=== PATIENT | female | born 1935 | race Caucasian/White ===

== ENCOUNTER → 2023-09-30 11:14 | Outpatient (REF) | payer MEDICARE, SELFPAY | LOC: RAD 11:14 | PROVIDERS: ATTENDING PHYSICIAN Internal Medicine; FAMILY PHYSICIAN Family Medicine | DX: I65.21 Occlusion and stenosis of right carotid artery (principal) | CPT/HCPCS: 93880 ==

== ENCOUNTER 2024-12-06 18:43 | Inpatient (IN) | payer MEDICARE, SELFPAY ==
[2024-12-06] VITALS (10 sets, daily range): BP systolic 84–155; BP diastolic 47–92
[2024-12-06 14:09] LABS: Hematocrit 40.6 % (37.0-47.0); Hemoglobin 13.5 g/dL (12.0-16.0); Mean Corp Hgb Conc. 33.3 g/dL (33.0-37.0); Mean Corpuscular Volume 89.4 fL (81.0-99.0); Nucleated Red Blood Cells % 0 %; Platelet Count 351 10^3/uL (130-400); Red Cell Dist. Width 12.7 % (11.5-14.5)
[2024-12-06 14:27] LABS: ALT (SGPT) 17 U/L (0-35); AST (SGOT) 25 U/L (14-36); Albumin 4.3 g/dl (3.5-5.0); Alkaline Phosphatase 96 U/L (38-126); Blood Urea Nitrogen 26 mg/dl (7-17); Calcium 9.3 mg/dl (8.4-10.2); Carbon Dioxide 24 mmol/L (22-30); Chloride 98 mmol/L (98-107); Glucose 121 mg/dl (70-99); Lipase 92 U/L (23-300); Potassium 4.2 mmol/L (3.5-5.1); Sodium 127 mmol/L (135-145); Total Protein 7.3 g/dl (6.3-8.2); eGFR > 60.00
--- NOTE | 2024-12-06 16:36 | ED.GENMED ---
History of Present Illness
<TJ Negrete Last Filed: 12/06/24 17:45>
General
Chief Complaint: Abdominal Symptoms
Source: patient
Exam Limitations: none
Time Seen by Provider: 12/06/24 16:14
History of Present Illness
History of Present Illness:
89-year-old female presents complaining worsening lower abdominal pain since this morning preceded by constipation. She also is having trouble urinating. She noted today that she had spikes of blood pressure that was high and blood pressure that
was low. She notes sweats and chills. The pain is progressively getting worse. She has a prior history of hysterectomy and appendectomy no prior history of bowel obstruction or kidney stone.
Past History
<TJ Negrete Last Filed: 12/06/24 17:45>
Past History
ED Past Medical History: Arrthythmia (svt), HTN (taken off Clonodine 11/01/20), Hypothyroidism, Psychiatric (anxiety) and Other (Lyme disease/Tachycardia)
ED Past Surgical History: Gynecological (hysterectomy); Negative Cardiac or Cholecystectomy
Social History
Tobacco: Non-smoker
Alcohol: Occasional
Drug: None
Personal:
Living: alone
Employment: Retired
Family History
Family History: Other (Noncontributory)
Phy Exam
<TJ Negrete Last Filed: 12/06/24 17:45>
Physical Exam
Physical Exam:
General: Uncomfortable appearing female no acute respiratory distress HEENT normal cephalic atraumatic
Heart: Regular rate and rhythm lungs: Clear no wheeze
Abdomen is slightly firm quite tender mild guarding slightly distended
Extremities: No cyanosis vascular palpable pulses to the dorsal aspects of bilateral feet
Course
<TJ Negrete Last Filed: 12/06/24 17:45>
Orders/Labs/Results
Orders:
Orders
12/06/24 13:54
ECG [Electrocardiogram (*1)] Urgent
Reason for Study: Hypertension, Benign
12/06/24 13:55
EKG- Treatment ONCE
12/06/24 14:01
Complete Blood Count/With Diff Urgent
Comprehensive Metabolic Panel Urgent
Lipase Urgent
12/06/24 16:34
CT Abd/pelvis W Iv Cont Urgent
Comment:
Reason For Exam: abdominal pain
Morphine Sulfate 2 mg IV NOW STA
Ondansetron Injectable [Zofran] 4 mg IV NOW STA
12/06/24 16:35
0.9% Sodium Chloride 1000 ml [Nss] 1,000 ml IV BOLUS
12/06/24 17:13
Piperacillin/Tazo 3.375 Gram [Zosyn] 3.375 gram in 50 ml IV NOW
12/06/24 17:16
Barnard Placement- Treatment ONCE
Reason for insertion: Acute Retention
12/06/24 17:45
Lactic Acid Q4H
Comment: CANCEL 2nd LACTIC ACID IF 1st LACTIC ACID IS LESS THAN 2
Blood Culture Q30M
MISTI Source: Blood/Venous
Specimen Description:
Blood Culture Q30M
MISTI Source: Blood/Venous
Specimen Description:
12/06/24 21:15
Lactic Acid Q4H
Comment: CANCEL 2nd LACTIC ACID IF 1st LACTIC ACID IS LESS THAN 2
Abnormal Lab Results
12/06/24 12/06/24
14:01 17:45
WBC 15.4 H 10^3/uL
(4.8-10.8)
MPV 10.6 H fL
(7.4-10.4)
Abs Immat Gran (auto) 0.1 H 10^3/uL
(0-0.05)
Absolute Neuts (auto) 12.9 H 10^3/uL
(1.4-6.5)
Absolute Monos (auto) 0.7 H 10^3/uL
(0.1-0.6)
Neutrophils % 83.7 H %
(42.2-75.2)
Lymphocytes % 10.2 L %
(20.5-51.1)
Sodium 127 L mmol/L
(135-145)
BUN 26 H mg/dl
(7-17)
Glucose 121 H mg/dl
(70-99)
Lactic Acid 2.1 H mmol/L
(0.7-2.0)
12/06/24 14:01
12/06/24 14:01
Vital Signs
Initial and Last Documented VS:
Initial Vital Signs
Temp Pulse Resp BP Pulse Ox
98.2 F 52 20 108/59 97
12/06/24 13:52 12/06/24 13:52 12/06/24 13:52 12/06/24 13:52 12/06/24 13:52
Last Documented Vital Signs
Temp Pulse Resp BP Pulse Ox
98.2 F 83 18 142/60 98
12/06/24 13:52 12/06/24 18:00 12/06/24 18:13 12/06/24 18:00 12/06/24 18:00
<Phil Eid MD - Last Filed: 12/06/24 18:21>
Orders/Labs/Results
Orders:
Orders
12/06/24 13:54
ECG [Electrocardiogram (*1)] Urgent
Reason for Study: Hypertension, Benign
12/06/24 13:55
EKG- Treatment ONCE
12/06/24 14:01
Complete Blood Count/With Diff Urgent
Comprehensive Metabolic Panel Urgent
Lipase Urgent
12/06/24 16:34
CT Abd/pelvis W Iv Cont Urgent
Comment:
Reason For Exam: abdominal pain
Morphine Sulfate 2 mg IV NOW STA
Ondansetron Injectable [Zofran] 4 mg IV NOW STA
12/06/24 16:35
0.9% Sodium Chloride 1000 ml [Nss] 1,000 ml IV BOLUS
12/06/24 17:13
Piperacillin/Tazo 3.375 Gram [Zosyn] 3.375 gram in 50 ml IV NOW
12/06/24 17:16
Barnard Placement- Treatment ONCE
Reason for insertion: Acute Retention
12/06/24 17:45
Lactic Acid Q4H
Comment: CANCEL 2nd LACTIC ACID IF 1st LACTIC ACID IS LESS THAN 2
Blood Culture Q30M
MISTI Source: Blood/Venous
Specimen Description:
Blood Culture Q30M
MISTI Source: Blood/Venous
Specimen Description:
12/06/24 21:15
Lactic Acid Q4H
Comment: CANCEL 2nd LACTIC ACID IF 1st LACTIC ACID IS LESS THAN 2
Abnormal Lab Results
12/06/24 12/06/24
14:01 17:45
WBC 15.4 H 10^3/uL
(4.8-10.8)
MPV 10.6 H fL
(7.4-10.4)
Abs Immat Gran (auto) 0.1 H 10^3/uL
(0-0.05)
Absolute Neuts (auto) 12.9 H 10^3/uL
(1.4-6.5)
Absolute Monos (auto) 0.7 H 10^3/uL
(0.1-0.6)
Neutrophils % 83.7 H %
(42.2-75.2)
Lymphocytes % 10.2 L %
(20.5-51.1)
Sodium 127 L mmol/L
(135-145)
BUN 26 H mg/dl
(7-17)
Glucose 121 H mg/dl
(70-99)
Lactic Acid 2.1 H mmol/L
(0.7-2.0)
12/06/24 14:01
12/06/24 14:01
Vital Signs
Initial and Last Documented VS:
Initial Vital Signs
Temp Pulse Resp BP Pulse Ox
98.2 F 52 20 108/59 97
12/06/24 13:52 12/06/24 13:52 12/06/24 13:52 12/06/24 13:52 12/06/24 13:52
Last Documented Vital Signs
Temp Pulse Resp BP Pulse Ox
98.2 F 83 18 142/60 98
12/06/24 13:52 12/06/24 18:00 12/06/24 18:13 12/06/24 18:00 12/06/24 18:00
<Phoenix Padilla PA-C - Last Filed: 12/06/24 17:45>
MDM/Problems Addressed
Differential Diagnosis Includes:
Lower abdominal pain with constipation difficulty voiding. Consider bowel obstruction versus colitis versus urinary retention versus perforation
Patient appears quite uncomfortable. Will treat symptoms with Zofran and morphine. Fluids ordered. Labs reviewed demonstrating
Leukocytosis with a white count of 15,000 sodium of 127. Fluids ordered. Bladder scan pending move her up on CT list given concern for possible perforation
<Phoenix Padilla PA-C - Last Filed: 12/06/24 17:45>
*Pulse Oximetry
SaO2: 99
Oxygen Mode of Delivery: Room air
Patient hypoxic: no
*Critical Care Note
Total Time (30-74mins, 75-104mins- exclusive of procedures): Not Applicable
<Phoenix Padilla PA-C - Last Filed: 12/06/24 17:45>
Update Note
Update Note:
CT reviewed and demonstrates severe sterile coral colitis with evidence of perforation. The sterile coral colitis involves the proximal sigmoid. Zosyn ordered fluids given blood pressure remained stable. Discussed with the emergency room
attending who saw the patient as well. Also relayed the information to the admitting hospitalist and colorectal surgery. Will admit
ED Attending Note
<Phoenix Padilla PA-C - Last Filed: 12/06/24 17:45>
-
Portions of this chart may have been created with voice recognition software.� Occasional wrong word or��sound alike� substitutions may have occurred due to the inherent limitations of voice recognition software.
<Phil Eid MD - Last Filed: 12/06/24 18:21>
ED Attending Note
Patient seen and examined by attending physician: Yes
ED Attending Note:
Pt presents to ED secondary to persistent abdominal pain along with multiple vomiting episodes since this morning. Denies fever/chills. Denies cp/sob. Denies trauma. Pt does report having had constipation despite small bm this morning, along with
difficulty with urination. Denies recent illness. Denies recent change in medications/diet. Denies previous history of similar symptoms. Denies trauma.
Physical Exam
General: moderate painful distress, acutely ill. afebrile
Head: nc/at. eomi
Neck: supple. no meningeal signs.
Heart: s1/s2 regular rate and rhythm
Lungs: no acute respiratory distress. clear bilaterally
Abdomen: normal bowel sounds. no distention. diffuse abdominal tenderness with guarding
Neuro: alert and oriented x 3. no focal neurological deficits
Skin: no rash
Psychiatric: well kept. interactive and cooperative
Extremities: no edema. no calf tenderness. negative homans. good distal pulses
History and exam concerning for colitis with perforated bowel. STAT CT abd/pel ordered, along with IVF/pain medication
CT abdomen pelvis confirms perforated bowel, secondary to severe constipation. Patient remains hemodynamically stable, but still uncomfortable.
Patient started on IV antibiotics. Dr. Ceja, colorectal surgery, notified via [place] text. Subsequently, Dr. Ceja spoke with patient and family via telephone.
Patient will be admitted to ICU for close monitoring.
Critical care statement: A total of 40 minutes of critical care time was provided for this patient. This includes management of unstable vital signs, evaluation of the patient at bedside, reviewing the patient's pertinent medical records, discussion
with consultants, review of old EKGs and review of pertinent medical records. This time with separate from time utilized to perform the aforementioned documented procedures
Discharge Plan
Departure
Patient Disposition: Admit
Date of Disposition: 12/06/24
Time of Disposition: 17:45
Presentation/result/management discussed w/ accepting MD/: Hospitalist
Discharge Problem:
Perforated sigmoid colon, Stercoral colitis
Prescriptions:
No Action
magnesium 250 MG tablet
250 mg PO DAILY
cholecalciferol (vitamin D3) [Vitamin D3] 1,000 UNIT capsule
1,000 unit PO DAILY
Saccharomyces boulardii [Daily Probiotic (S. boulardii)] 250 MG capsule
250 mg PO DAILY
diltiazem HCl 180 MG capsule,extended release 24hr
180 mg PO DAILY
clonidine HCl 0.1 mg tablet
0.1 mg PO TID
thyroid (pork) [[place] Thyroid] 30 mg tablet
30 mg PO DAILY
multivitamin Tablet
1 tab PO DAILY
aspirin 81 mg Tablet
81 mg PO DAILY
Referrals:
Jimy Zuniga DO [Family Provider, Family Practice]
Interventions
Interventions:
*Risk Screen - Suicide Last Done: 12/06/24 16:45
*General Assessment Last Done: 12/06/24 13:52
*Neglect/Abuse Screening Last Done: 12/06/24 16:45
*ED- Fall Risk Assessment Last Done: 12/06/24 17:04
*ED COVID-19 Vaccine History Last Done: 12/06/24 15:56
*ED Influenza Vaccine History Last Done: 12/06/24 15:56
YD-Ippjdh-Abtdeijzhc Assessment Last Done: 12/06/24 16:45
Discharge Date and Time
Print Language: [place] ISLAND[place]
[2024-12-06] MEDS: ZOFRAN 4 MG IV (16:54)
[2024-12-06] MEDS: MORPHINE SULFATE 2 MG IV (16:54)
[2024-12-06] MEDS: NSS 1000 IV (16:54)
[2024-12-06] MEDS: ZOSYN 50 IV (17:48)
--- NOTE | 2024-12-06 18:16 | HPS.HSE ---
Addendum entered and electronically signed by Melia Abdi MD 12/06/24 18:48:
This is an addendum to the H&P written by Marcia Alvarado on 12/06/2024. �Patient seen and examined independently with PA.
89-year-old female past medical history of recurrent Lyme disease, hypertension, SVT, hypothyroidism, anxiety, presenting with worsening lower abdominal pain since this morning preceded by constipation. �Difficulty urinating. �Has been having
variable blood pressure low and high. �Sweats and chills.
Vital signs unremarkable.
Labs show leukocytosis 15. �Sodium 127. �Lactate 2.1.
CT abdomen pelvis shows severe acute stercoral colitis in the proximal sigmoid colon secondary to severe constipation with colonic perforation, pneumatosis in the colon wall and a small amount of extraluminal air in the pelvis.
Patient with colonic perforation secondary to severe stercoral colitis from constipation. �N.p.o., IV fluids, Zosyn, morphine, colorectal surgery consulted with plan for operating room possibly today. �Patient with possible urinary retention from
constipation. �Barnard catheter.
Original Note:
Family Physician
-
Family Physician: Jimy Zuniga DO
Chief Complaint
-
Abdominal Pain
History of Present Illness
Patient is an 89 y/o female past medical history of hypertension, SVT, hypothyroidism and chronic fatigue who presents with abdominal. Patient report she has been very constipated. She did have a small bowel movement this morning but reports pain
in her lower abdomen has gotten significantly worse. She reports chills today, and did have an episode of vomiting while in the emergency department. She also reports having some difficulty urinating associated with the constipation. She reports
prior hysterectomy, but denies prior history of bowel obstruction.
Medical History
Past Medical History
Past Medical History: Reports Other
Additional Past Medical History:
Essential Hypertension
SVT
Hypothyroidism
Chronic Fatigue related to Chronic Lyme
Past Surgical History: Reports Other
Additional Past Surgical History:
Hysterectomy
Right Breast Lumpectomy
Social History
Tobacco: Non-smoker
Alcohol: None
Living: With Family (Patient reports her daughters alternate staying with her)
Family History
Family History: Not pertinent
Allergies / Home Medications
Allergies reflects when Allergies were last updated in [facility].
Home Medications with original date entered in [facility]
Allergy/Medication List:
Allergies
Allergy/AdvReac Type Severity Reaction Status Date / Time
amlodipine (From Norvasc) Allergy nausea/depr Verified 12/06/24 13:52
ession
brimonidine (From Simbrinza) Allergy Unknown Verified 12/06/24 13:52
brinzolamide (From Simbrinza) Allergy Unknown Verified 12/06/24 13:52
methazolamide Allergy Unknown Verified 12/06/24 13:52
metoprolol succinate (From Allergy Unknown Verified 12/06/24 13:52
Toprol XL)
oxycodone (From Percodan) Allergy Unknown Verified 12/06/24 13:52
oxycodone HCl (From Percocet) Allergy Nausea / Verified 12/06/24 13:52
Vomiting
prochlorperazine (From Allergy Hives Verified 12/06/24 13:52
Compazine)
propranolol Allergy Unknown Verified 12/06/24 13:52
sulfamethoxazole (From Allergy Nausea / Verified 12/06/24 13:52
Bactrim) Vomiting
timolol Allergy Unknown Verified 12/06/24 13:52
trimethoprim (From Bactrim) Allergy Nausea / Verified 12/06/24 13:52
Vomiting
verapamil Allergy Unknown Verified 12/06/24 13:52
Home Medications
Saccharomyces boulardii 250 mg capsule (Daily Probiotic (S. boulardii)) 250 mg PO DAILY probiotic 11/03/20
cholecalciferol (vitamin D3) 25 mcg (1,000 unit) capsule (Vitamin D3) 1,000 unit PO DAILY Supplement 11/03/20
magnesium 250 mg tablet 250 mg PO DAILY Electrolyte Repletion 11/03/20
diltiazem HCl 180 mg capsule,extended release 24 hr 180 mg PO DAILY Blood pressure 11/04/20
aspirin 81 mg tablet 81 mg PO DAILY 12/06/24
clonidine HCl 0.1 mg tablet 0.1 mg PO TID 12/06/24
multivitamin 1 tab PO DAILY 12/06/24
thyroid (pork) 30 mg tablet ([place] Thyroid) 30 mg PO DAILY 12/06/24
Review of Systems
-
History Source: Patient
Constitutional: Reports Chills; Denies Fever
Respiratory: Denies Cough or Trouble Breathing
Cardiac: Denies Chest Pain or Palpitations
Physical Exam
Vital Signs
Vital Signs
Temp Pulse Resp BP Pulse Ox
98.2 F 83 18 142/60 98
12/06/24 13:52 12/06/24 18:00 12/06/24 18:13 12/06/24 18:00 12/06/24 18:00
Physical Exam
General: Comfortable and Conversant
HEENT: Anicteric and Moist mucous membranes
Respiratory: Clear and Non Labored Respirations
Cardiac: S1/S2, Regular Rhythm and Murmur
GI: Other (Absent bowel sound on the left; Slight distention; Tender to palpation particularly in the lower quadrants)
Rectal: Deferred by Provider
Musculoskeletal: No Clubbing and No Cyanosis
Skin: Warm and Dry
Neuro: Awake, Alert, Oriented and Nonfocal/grossly intact
Psych: Calm
Laboratory Results
-
12/06/24 14:01
12/06/24 14:01
Laboratory Results
Lactic Acid 2.1 mmol/L (0.7-2.0) H 12/06/24 17:45
Total Bilirubin 0.6 mg/dl (0.2-1.3) 12/06/24 14:01
AST 25 U/L (14-36) 12/06/24 14:01
ALT 17 U/L (0-35) 12/06/24 14:01
Alkaline Phosphatase 96 U/L (38-126) 12/06/24 14:01
Lipase 92 U/L (23-300) 12/06/24 14:01
Abd/Pelvis CT:
SEVERE ACUTE STERCORAL COLITIS in the PROXIMAL SIGMOID COLON secondary to SEVERE CONSTIPATION with colonic perforation, pneumatosis in the colonic wall, and a small amount of extraluminal air in the pelvis.
Data Reviewed
-
CT Scan: Report Reviewed by me
Lab Data: Labs Reviewed by me
Impression/Plan
-
Sigmoid Colon Perforation secondary to Severe Acute Stercoral Colitis
-Consult Colorectal surgery - Tentative plan for OR this evening
-Continue NPO/IVFs
-Continue Zosyn
Urinary Retention
-Barnard catheter placed in ED
Hyponatremia, mild, suspect related to poor oral intake
-Continue IVFS
-Recheck labs in AM
Hx SVT
-Continue diltiazem
Essential Hypertension
-Hold clonidine
Hypothyroidism
-Continue [place] Thyroid
DVT proph: Lovenox to start post-op
Code Status: DNR
--- NOTE | 2024-12-06 20:13 | CON.CRS ---
Consultation
-
Date/Time Consultation Requested: 12/06/24 @18:00
Date/Time Consultation Performed: 12/06/24 at 19:15
Requesting Provider: Phoenix Padilla PA-C
Performing Provider: Phoenix Ceja MD
Reason for Consultation: Stercoral colitis
Medical History
-
Chief Complaint: Abdominal pain
History of Present Illness:
89-year-old female with hypertension, PSVT, coronary artery disease, hypothyroidism, recurrent Lyme disease, anxiety, and chronic fatigue who presents with abdominal pain that worsened this morning. Initially was in the lower abdomen and now is
more diffuse. She has some chills today with an episode of vomiting. She has a history of constipation which became worse over the past week or 2. She also has had difficulty with urination today. She has undergone a hysterectomy for benign
disease many years ago and an incidental appendectomy.
Past Medical History
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
Past Surgical History: Appendectomy, Gynecological (Total hysterectomy 1974 and incidental appendectomy), Tonsilectomy and Other (Breast lumpectomy; sinus surgery)
Social History
Tobacco: Non-Smoker
Alcohol: None
Personal:
Living: Alone
Family History
Family History: Cancer (Father of colon cancer at age 80)
Allergies / Home Medications
Allergy/AdvReac Type Severity Reaction Status Date / Time
amlodipine (From Norvasc) Allergy nausea/depr Verified 12/06/24 13:52
ession
brimonidine (From Simbrinza) Allergy Unknown Verified 12/06/24 13:52
brinzolamide (From Simbrinza) Allergy Unknown Verified 12/06/24 13:52
methazolamide Allergy Unknown Verified 12/06/24 13:52
metoprolol succinate (From Allergy Unknown Verified 12/06/24 13:52
Toprol XL)
oxycodone (From Percodan) Allergy Unknown Verified 12/06/24 13:52
oxycodone HCl (From Percocet) Allergy Nausea / Verified 12/06/24 13:52
Vomiting
prochlorperazine (From Allergy Hives Verified 12/06/24 13:52
Compazine)
propranolol Allergy Unknown Verified 12/06/24 13:52
sulfamethoxazole (From Allergy Nausea / Verified 12/06/24 13:52
Bactrim) Vomiting
timolol Allergy Unknown Verified 12/06/24 13:52
trimethoprim (From Bactrim) Allergy Nausea / Verified 12/06/24 13:52
Vomiting
verapamil Allergy Unknown Verified 12/06/24 13:52
�Medication �Instructions �Recorded �Confirmed �Type
Saccharomyces boulardii 250 mg 250 mg PO DAILY probiotic 11/03/20 12/06/24 History
capsule (Daily Probiotic (S.
boulardii))
cholecalciferol (vitamin D3) 25 1,000 unit PO DAILY Supplement 11/03/20 12/06/24 History
mcg (1,000 unit) capsule (Vitamin
D3)
magnesium 250 mg tablet 250 mg PO DAILY Electrolyte 11/03/20 12/06/24 History
Repletion
diltiazem HCl 180 mg 180 mg PO DAILY Blood pressure 11/04/20 12/06/24 History
capsule,extended release 24 hr
aspirin 81 mg tablet 81 mg PO DAILY 12/06/24 12/06/24 History
clonidine HCl 0.1 mg tablet 0.1 mg PO TID 12/06/24 12/06/24 History
multivitamin 1 tab PO DAILY 12/06/24 12/06/24 History
thyroid (pork) 30 mg tablet 30 mg PO DAILY 12/06/24 12/06/24 History
([place] Thyroid)
Review of Systems
-
History Source: Patient
All other systems: Negative unless noted
A 10 point review of systems was completed, and was negative except as per HPI.
Physical Exam
Vital Signs
Temp 98.2 F 12/06/24 13:52
Pulse 92 12/06/24 19:40
Resp Rate 24 12/06/24 19:40
Blood pressure 154/63 12/06/24 19:40
SaO2 100 12/06/24 19:40
12/05/24 12/06/24 12/07/24
06:59 06:59 06:59
Actual Weight 60.6 kg
Lab Results / Allergies
12/06/24 14:01
12/06/24 14:01
WBC 15.4 10^3/uL (4.8-10.8) H 12/06/24 14:01
Hgb 13.5 g/dL (12.0-16.0) 12/06/24 14:01
Hct 40.6 % (37.0-47.0) 12/06/24 14:01
Plt Count 351 10^3/uL (130-400) 12/06/24 14:01
Abs Immat Gran (auto) 0.1 10^3/uL (0-0.05) H 12/06/24 14:01
Neutrophils % 83.7 % (42.2-75.2) H 12/06/24 14:01
Allergy/AdvReac Type Severity Reaction Status Date / Time
amlodipine (From Norvasc) Allergy nausea/depr Verified 12/06/24 13:52
ession
brimonidine (From Simbrinza) Allergy Unknown Verified 12/06/24 13:52
brinzolamide (From Simbrinza) Allergy Unknown Verified 12/06/24 13:52
methazolamide Allergy Unknown Verified 12/06/24 13:52
metoprolol succinate (From Allergy Unknown Verified 12/06/24 13:52
Toprol XL)
oxycodone (From Percodan) Allergy Unknown Verified 12/06/24 13:52
oxycodone HCl (From Percocet) Allergy Nausea / Verified 12/06/24 13:52
Vomiting
prochlorperazine (From Allergy Hives Verified 12/06/24 13:52
Compazine)
propranolol Allergy Unknown Verified 12/06/24 13:52
sulfamethoxazole (From Allergy Nausea / Verified 12/06/24 13:52
Bactrim) Vomiting
timolol Allergy Unknown Verified 12/06/24 13:52
trimethoprim (From Bactrim) Allergy Nausea / Verified 12/06/24 13:52
Vomiting
verapamil Allergy Unknown Verified 12/06/24 13:52
Physical Exam
General: Well Developed, Well Nourished and Pain
HEENT: Normocephalic and Anicteric
Respiratory: Clear
Cardiac: S1/S2
GI: Tender (Guarding and rebound in all quadrants), Distended and Incisions (Well-healed Pfannenstiel incision)
Musculoskeletal: No Edema
Skin: Warm
Neuro: Awake and Alert
Data Reviewed
-
CT Scan: Image Personally Visualized and interpreted, Report Reviewed by me, Discussed with Physician, Discussed with Patient and Discussed with Family
Labs: Labs Reviewed by me, Discussed with Physician, Discussed with Patient and Discussed with Family
Assessment / Plan
-
87-year-old with multiple medical problems who presents with worsening abdominal pain found to have stercoral colitis with several areas of extraluminal air. She is hemodynamically stable but is quite tender on exam. Her white count is 15.4 and
her lactate is 2.1. I personally reviewed the CT scan of the abdomen and pelvis with IV contrast and there is a large amount of stool throughout the colon and terminal ileum with inflammation and a small amount of extraluminal air in the pelvis
near the small bowel and sigmoid colon as well as pneumatosis in the descending colon and proximal sigmoid colon.
I reviewed the current findings with the patient and her daughter and discussed the treatment options with the risks and benefits of each. We discussed nonoperative management with antibiotics and laxatives versus surgery. Given her clinical
status, I feel the chances of her surviving without surgery are nil. Surgery would involve a laparotomy, resection of colon and possible small bowel with an ileostomy. It is very possible she needs a total colectomy. Risks include, but are not
limited to, bleeding, infection, adhesions, hernias, stoma complications, injury other structures, positioning injuries, organ failure, chronic ventilatory dependence, cardiopulmonary complications, and even . I reviewed the typical recovery
both in and out of the hospital as well as the functional results. If she survives she will most likely be a resident at a custodial. All questions answered and they wish to proceed with surgery. Antibiotics have been ordered and arrangements
are in progress for the operating room.
--- NOTE | 2024-12-06 22:55 | W.IMMPOSTOP ---
Surgical Immed Post Op Note
-
Primary Surgeon: Phoenix Ceja MD
Assisting Surgeon: Kei Garner MD
Pre-op Diagnosis: Stercoral colitis with perforation
Post-op Diagnosis: Same
Procedure Performed: Exploratory laparotomy, sigmoid resection with takedown splenic flexure, disimpaction, and end colostomy
Anesthesia Type: GET, CANDY
Specimen / Cultures: Peritoneal cultures
Sigmoid colon (perforation as distal)
Estimated Blood Loss: 25 cc
Complications: None
Operative Findings: Large perforation in the sigmoid colon secondary to stercoral colitis
Free intra-abdominal air with a moderate amount of murky fluid in the pelvis (culture)
Hard, inspissated stool throughout the entire transverse colon and left colon propagated distally and removed
Viable bowel throughout
NG tube in the fundus of the stomach
Patient's daughter updated via telephone
[2024-12-06 23:19] LABS: Glucose - Point of Care 108 mg/dl (70-99)
[2024-12-06] MEDS: DIPRIVAN 100 IV (23:29)
[2024-12-06] MEDS: SUBLIMAZE 50 MCG IV (23:31)
[2024-12-06] MEDS: SUBLIMAZE 100 IV (23:34)
[2024-12-06] MEDS: NORMOSOL-R/PLASMALYTE-A 1000 IV (23:48)
[2024-12-06] MEDS: LR 1000 IV (23:49)
[2024-12-07] VITALS (18 sets, daily range): BP systolic 80–172; BP diastolic 37–72; PULSE 80; O2SAT 99; BMI 23.4
[2024-12-07 00:11] LABS: Hematocrit 40.7 % (37.0-47.0); Hemoglobin 13.8 g/dL (12.0-16.0); Mean Corp Hgb Conc. 33.9 g/dL (33.0-37.0); Mean Corpuscular Volume 88.1 fL (81.0-99.0); Platelet Count 358 10^3/uL (130-400); Red Cell Dist. Width 13.1 % (11.5-14.5)
[2024-12-07 00:13] LABS: B.E. -6.3 mmol/L; HCO3 18.1 mmol/L (21-28); O2 Saturation % 99.5 % (94-98); PCO2 32 mmHg (32-35); PO2 113 mmHg (83-108)
[2024-12-07 00:14] LABS: O2 Therapy VENT
[2024-12-07] MEDS: NOVOLOG FLEXPEN-LOW RESISTANCE SC ×3 (00:15→17:45)
[2024-12-07 00:19] LABS: INR 1.11; PT 14.9 Sec (11.4-14.6)
[2024-12-07 00:20] LABS: APTT 29.8 Sec (23.4-35.0)
[2024-12-07 00:27] LABS: Blood Urea Nitrogen 19 mg/dl (7-17); Calcium 7.5 mg/dl (8.4-10.2); Carbon Dioxide 17 mmol/L (22-30); Chloride 104 mmol/L (98-107); Estimated Creatinine Clearance 54 ml/min; Glucose 162 mg/dl (70-99); Magnesium 2.1 mg/dl (1.6-2.3); Potassium 4.1 mmol/L (3.5-5.1); Sodium 130 mmol/L (135-145); Triglycerides 58 mg/dl (10-149); eGFR > 60.00
[2024-12-07] MEDS: ZOSYN 50 IV ×4 (00:37→17:43)
[2024-12-07] MEDS: SUBLIMAZE 50 MCG IV ×3 (01:40→07:03)
--- NOTE | 2024-12-07 02:41 | PTCARENOTE ---
Addendum entered by Aurora Taylor RN 12/07/24 03:00:
*colostomy*
Original Note:
Received patient from the OR around 2300. Midline abd incision with shadowing and was marked with joseie. Left ileostomy with pink budded stoma, no drainage. NGT to left nare placed to continuous -80 suction with no drainage. Abd round and tender
with absent bowel sounds. A line to right radial leveled and zeroed. Respiratory to bedside to initiate Vent AC 12/400/40/5. ET tube #7, 23 cm at the lip Patient with positive CPOT and rass- Prop and fent initiated per order. LR bolus given. NSR on
the monitor. Levo started to maintain maps above 65.
--- NOTE | 2024-12-07 04:26 | W.PN.SEPSIS ---
Sepsis
Vital Signs
Temp Pulse Resp BP Pulse Ox
96.7 F L 63 7 119/50 99
12/07/24 03:33 12/07/24 03:00 12/07/24 03:00 12/07/24 01:24 12/07/24 03:00
Physical Exam
Physical Exam:
A focused exam was performed after fluid resuscitation.
Capillary Refill
Bilateral Upper Extremity:
Mindy Time: Less than 3 sec
Bilateral Lower Extremity:
Mindy Time: Less than 3 sec
Pulse Evaluation
Bilateral Radial:
Pulse Evaluation: Present
Bilateral Dorsalis Pedis:
Pulse Evaluation: Present
[2024-12-07] MEDS: SODIUM BICARBONATE 50 MEQ IV (05:32)
[2024-12-07 05:53] LABS: Hematocrit 37.8 % (37.0-47.0); Hemoglobin 13.1 g/dL (12.0-16.0); Mean Corp Hgb Conc. 34.7 g/dL (33.0-37.0); Mean Corpuscular Volume 85.3 fL (81.0-99.0); Platelet Count 388 10^3/uL (130-400); Red Cell Dist. Width 13.2 % (11.5-14.5)
[2024-12-07 06:08] LABS: Glucose - Point of Care 157 mg/dl (70-99)
[2024-12-07] MEDS: NOVOLOG FLEXPEN-LOW RESISTANCE 1 UNITS SC (06:24)
--- NOTE | 2024-12-07 06:31 | PTCARENOTE ---
No changes from previous assessment. Patient with positive CPOT scale- prn bolus dose of fentanyl administered and gtt rate increased to 75mcg/hour. Propofol weaned to 15mcg/kg. Unable to wean off the levophed due to labile BPs. and currently
infusing at 6 mcg/min. No output from NGT/colostomy. Restraints remain in place to prevent patient from pulling out ET tube.
--- NOTE | 2024-12-07 07:39 | CON.INTV ---
Consultation
Consultation Request
Date/Time Consultation Requested: 12/06/2024
Date/Time Consultation Performed: 12/07/2024
Medical History
-
Chief Complaint: Abdominal Pain
History of Present Illness:
This is an 89 y/o female with pmhx of recurrent Lyme disease, essential hypertension, SVT, hypothyroidism, anxiety who presented to the ED on 12/06 with worsened abdominal pain starting that same morning. She had been experiencing constipation
leading up to that morning, with difficulty urinating, sweating, chills, and variable blood pressures, as well as an episode of vomiting in the ED.
In the ED her WBC was 15.4, hemoglobin was 13.5 her sodium was 127, her lactate was 2.1. CT Abdomen/Pelvis showed severe acute stercoral colitis int he proximal sigmoid colon secondary to severe constipation with colonic perforation, pneumatosis in
the colon wall and a small amount of extraluminal air in the pelvis. She was given IV fluids, Zosyn and Morphine. She was taken to the OR on the same day for exploratory laparotomy, sigmoid resection with takedown splenic flexure, disimpaction and
end colostomy. Cultures were taken at the time of surgery.
Today she is doing well. She is awake enough to open her eyes and nod yes/no to questions. She denies any pain. She reports feeling better than yesterday. Her family including her son and daughter are at the bedside.
Past Medical History
Past Medical History: HTN, Hypothyroidism, Psychiatric (Anxiety) and Other (Recurrent Lyme Disease, SVT)
Past Surgical History: Appendectomy, Gynecological (Hysterectomy), Tonsilectomy and Other (Breast Lumpectomy)
Social History
Tobacco: Non-smoker
Alcohol: None
Drug: None
Personal:
Living: Alone (Children frequently visit)
Employment: Retired
Family History
Family History: Cancer (Father of colon cancer at age 80)
Allergies / Home Medications
Allergies
Allergy/AdvReac Type Severity Reaction Status Date / Time
amlodipine (From Norvas) Allergy nausea/depr Verified 12/06/24 13:52
ession
brimonidine (From Simbrinza) Allergy Unknown Verified 12/06/24 13:52
brinzolamide (From Simbrinza) Allergy Unknown Verified 12/06/24 13:52
methazolamide Allergy Unknown Verified 12/06/24 13:52
metoprolol succinate (From Allergy Unknown Verified 12/06/24 13:52
Toprol XL)
oxycodone (From Percodan) Allergy Unknown Verified 12/06/24 13:52
oxycodone HCl (From Percocet) Allergy Nausea / Verified 12/06/24 13:52
Vomiting
prochlorperazine (From Allergy Hives Verified 12/06/24 13:52
Compazine)
propranolol Allergy Unknown Verified 12/06/24 13:52
sulfamethoxazole (From Allergy Nausea / Verified 12/06/24 13:52
Bactrim) Vomiting
timolol Allergy Unknown Verified 12/06/24 13:52
trimethoprim (From Bactrim) Allergy Nausea / Verified 12/06/24 13:52
Vomiting
verapamil Allergy Unknown Verified 12/06/24 13:52
Home Medications
�Medication �Instructions �Recorded �Confirmed �Last Taken �Type
Saccharomyces boulardii 250 mg 250 mg PO DAILY probiotic 11/03/20 12/06/24 Unknown History
capsule (Daily Probiotic (S.
boulardii))
cholecalciferol (vitamin D3) 25 1,000 unit PO DAILY Supplement 11/03/20 12/06/24 Unknown History
mcg (1,000 unit) capsule (Vitamin
D3)
magnesium 250 mg tablet 250 mg PO DAILY Electrolyte 11/03/20 12/06/24 Unknown History
Repletion
diltiazem HCl 180 mg 180 mg PO DAILY Blood pressure 11/04/20 12/06/24 Unknown History
capsule,extended release 24 hr
aspirin 81 mg tablet 81 mg PO DAILY 12/06/24 12/06/24 Unknown History
clonidine HCl 0.1 mg tablet 0.1 mg PO TID 12/06/24 12/06/24 Unknown History
multivitamin 1 tab PO DAILY 12/06/24 12/06/24 Unknown History
thyroid (pork) 30 mg tablet 30 mg PO DAILY 12/06/24 12/06/24 Unknown History
([place] Thyroid)
Review of Systems
-
Unable to Obtain full review of systems at this time due to: Patient Intubation
History Source: Patient
Cardiac: Chest Pain (Denies)
Abdomen/GI: Abdominal Pain (Denies)
Vitals / Labs / Diagnostic Testing
Vital Signs
Temp Pulse Resp BP Pulse Ox
96.7 F L 90 10 119/50 95
12/07/24 03:33 12/07/24 07:15 12/07/24 07:15 12/07/24 01:24 12/07/24 07:16
Lab Data
12/07/24 05:28
Laboratory Results
12/07/24
00:02
PT 14.9 H
INR 1.11
APTT 29.8
pH 7.36
pCO2 32
pO2 113 H
HCO3 18.1 L
O2 Delivery Level Vent
Diagnostic Testing:
Physical Exam
-
HEENT: Normocephalic, Anicteric and Other (NG tube in place, Ventilator in place)
Cardiovascular: S1/S2, Regular Rhythm and Other (Occasionally tachycardic)
Respiratory: Non-Labored Respirations and Other (Ventilator (12;400;5;40))
GI: Soft and Other (NG)
Neurology: Awake and Alert
Skin: Warm, Dry, Good Color and Other (No Edema)
General: Comfortable
Assessment
-
Assessment:
This is an 89 y/o female with pmhx of recurrent Lyme disease, essential hypertension, SVT, hypothyroidism, anxiety who presented to the ED on 12/06 with ongoing constipation, worsened abdominal pain starting that same morning who was found to have
severe acute stercoral colitis of the proximal sigmoid colon and underwent exploratory laparotomy, sigmoid resection with takedown splenic flexure, disimpaction and end colostomy on that same day.
Plan:
Sigmoid Colon Perforation
Severe Acute Stercoral Colitis
Constipation
Per CT Abdomen/Pelvis: SEVERE ACUTE STERCORAL COLITIS in the PROXIMAL SIGMOID COLON secondary to SEVERE CONSTIPATION with colonic perforation, pneumatosis in the colonic wall, and a small amount of extraluminal air in the pelvis. Small volume of
pelvic ascites.
S/p exploratory laparotomy, sigmoid resection with takedown splenic flexure, disimpaction and end colostomy on 12/06
Cultures taken in the OR Pending
Currently patient intubated with 75 fentanyl and 15 propofol initially this AM, weaned to 25 and 10. Stop drips now. Will check ABG shortly and if normal will plan to extubate
If in pain, will start 100mg IV Tylenol for 4 doses
Continue NG tube after extubation.
Continue Zosyn (Start date 12/06; Day 2 antibiotics today)
Continue Zofran for Nausea
ColoRectal Surgery is following, will appreciate their insight
Urinary retention
Barnard catheter in place, placed on 12/06
Will monitor
Hyponatremia
Sodium 127 on admission
Continue IV fluids (Normosol)
Will monitor
History of SVT
HOLD Diltiazem until levophed is weaned, will resume with hold parameters for SBP 100, HR less than 60
Add prn metoprolol for HR >120
Essential Hypertension
Hypotension
By staff report much fluctuation in blood pressures overnight, requiring Levophed of up to 8 for hypotension while sleeping
Weaning off levophed
HOLD clonidine until levophed is weaned, will resume with hold parameters for SBP less than 120
Hypothyroidism
TSH 1.45
Continue armour thyroid
[2024-12-07 08:48] LABS: Glycohemoglobin (HgbA1c) 5.5 % (4.0-5.9)
--- NOTE | 2024-12-07 09:30 | PTCARENOTE ---
Assumed care of patient at 0700. Patient intubated and sedated on Fentanyl/Prop gtts. During handoff with prior RN, patient found to be anxious and restless in bed. Fent bolus administered and sedation titrated for RASS 0 to -2. Patient nodding head
appropriately and following commands. PERRLA. MAEx4. SB/NSR, rate in the 50-60's. ST with brief periods of anxiety. Norepinephrine infusing for MAP>65. Right radial tierney leveled and zeroed. #7.0 ett, 23 cm @ the lip. ETT repositioned to 21 cm by
RT, per CXR results. Vent settings: A/C 12/400/5/40%. Pulse ox 100%. Hypo BS. Abdomen round/soft/tender. Midline dressing intact; old drainage. NGT to continuous suction. Colostomy stoma pink/budded. Barnard in place for acute retention.
[2024-12-07] MEDS: ARMOUR THYROID 30 MG PO (09:35)
[2024-12-07 10:22] LABS: Blood Urea Nitrogen 18 mg/dl (7-17); Calcium 7.4 mg/dl (8.4-10.2); Carbon Dioxide 22 mmol/L (22-30); Chloride 102 mmol/L (98-107); Estimated Creatinine Clearance 40 ml/min; Glucose 165 mg/dl (70-99); Potassium 3.7 mmol/L (3.5-5.1); Sodium 132 mmol/L (135-145); eGFR > 60.00
[2024-12-07] MEDS: NORMOSOL-R/PLASMALYTE-A 1000 IV (10:32)
--- NOTE | 2024-12-07 11:09 | W.PN.CRS1 ---
Today's Communication / Plan
-
maintain ngt
wound RN for stoma teaching
lovenox
IV antibiotics
await cultures
wean levophed as able
Assessment/Plan
-
POD#1 Exploratory laparotomy, sigmoid resection with takedown splenic flexure, disimpaction, and end colostomy
WBC: 10.9, Hgb 13.1
-Extubate per intensive care unit
-Maintain NGT until bowel function
-OR pathology pending
-OOB with PT/OT when extubated
-Wound RN for colostomy teaching
-Maintain midline incision until changed by surgical team (syd underneath)
-Continue mckinney for I/O's
-Wean levophed per primary team
-Continue IV antibiotics
-OR cultures pending
-Lovenox for DVT prophylaxis. TEDs/SCDs in place.
-Fentanyl gtt for pain control
Subjective Data
Procedure
12/06/24- Exploratory laparotomy, sigmoid resection with takedown splenic flexure, disimpaction, and end colostomy
Subjective Data
Date of Service: December 07, 2024
Patient is intubated and partially sedated. When asked if she has pain, she shook her head 'no'.
Objective Data
-
Vital Signs
Temp Pulse Resp BP Pulse Ox
98.4 F 89 13 172/64 100
12/07/24 07:47 12/07/24 10:00 12/07/24 10:00 12/07/24 09:56 12/07/24 10:00
Intake & Output
12/06/24 12/07/24 12/08/24
06:59 06:59 06:59
Intake Total 1895.4 / 2034.5 519.7 / 519.7
Output Total 650 / 695 135 / 135
Balance 1245.4 / 1339.5 384.7 / 384.7
Intake:
Oral fluids 0 / 0
IV fluids (Total) 1815.4 / 1954.5 519.7 / 519.7
LR 1000 / 1000
Normosol 651.6 / 751.6 400 / 400
fentanyl 34.9 / 42.4 25.0 / 25.0
levo 80.5 / 106.8 75.2 / 75.2
propofol 48.4 / 53.7 19.5 / 19.5
IV piggybacks 50 / 50
Amount instilled into GI Tube (
Total)
Harney Sump
Output:
Urine, Mckinney 650 / 695 135 / 135
Lab Results
12/07/24 05:28
12/07/24 09:51
Physical Exam
-
General: Other (intubated and sedated)
Abdomen: Soft, Non Distended, Non Tender and Other (colostomy warm and pink, no output in bag)
Wound: Dressing in Place
[2024-12-07] MEDS: TRANDATE 10 MG IV (11:51)
[2024-12-07 12:08] LABS: Glucose - Point of Care 137 mg/dl (70-99)
[2024-12-07 12:22] LABS: B.E. -2.2 mmol/L; HCO3 21.1 mmol/L (21-28); O2 Saturation % 99.3 % (94-98); PCO2 31 mmHg (32-35); PO2 174 mmHg (83-108)
--- NOTE | 2024-12-07 13:15 | CM ---
Initial assessment completed with 2 daughters. One daughter lives with patient in a 1 story plus basement home with 1 step to enter. 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 She also has a SPC, SC and grab bars
in bathroom. She does drive occasionally for short distances. Does have HC-POA. No VA benefits. No psychiatric hospitalizations. PCP is Dr. Jimy Zuniga. Pharmacy is [email or web address] on [facility] in . Discharge POC: TBD. Currently intubated.
--- NOTE | 2024-12-07 13:30 | PTCARENOTE ---
Patient placed on wean at 1123. CPAP 5/5 40%. Fentanyl/Propofol/Levophed off. RASS 0 to 1. About 20 minutes into wean, patient became hypertensive and tachycardic. Patient calm. Denied pain. HR up to 130s, BP 220/100's. Lpn notified. Order
for 10mg IV Labetalol obtained and administered. Soothing music turned on and family at bedside to provide reassurance. Vitals stabilized. ABG sent. Results reported to Lpn. Orders to extubate placed. Patient extubated at 1310. Upon
extubation, patient alert and oriented. NSR, 80's. BP 150/50's. Pulse ox 99% on 5L nc. Weaned to 2L nc. Lung sounds diminished. No other changes from prior assessment.
[2024-12-07] MEDS: CALCIUM GLUCONATE 100 IV (13:37)
--- NOTE | 2024-12-07 15:40 | WOUNDNOTE ---
[facility] RN note: Patient s/p ostomy surgery Exploratory laparotomy, sigmoid resection with takedown splenic flexure, disimpaction, and end colostomy on 12/06.
See H&P for complete history.
PMH: sigmoid resection and end colostomy for perforated stercoral colitis, Lyme disease, essential hypertension, SVT, hypothyroidism, anxiety
Ostomy location and type: End Colostomy
Met with patient and family briefly. Stoma is pink and budded, midline dressing clean and intact. Patient awake and cooperative. She said would like the assistance of her daughters in ostomy care. Daughters at bedside and agreeable to plan.
Information and ostomy supplies at bedside. Daughters will review ostomy information. Will continue to follow with patient and family during in-patient stay.
[2024-12-07 15:44] LABS: Blood Urea Nitrogen 19 mg/dl (7-17); Calcium 8.0 mg/dl (8.4-10.2); Carbon Dioxide 23 mmol/L (22-30); Chloride 101 mmol/L (98-107); Estimated Creatinine Clearance 46 ml/min; Glucose 146 mg/dl (70-99); Potassium 3.5 mmol/L (3.5-5.1); Sodium 128 mmol/L (135-145); eGFR > 60.00
--- NOTE | 2024-12-07 16:00 | PTCARENOTE ---
Lactic trending up; 3.0. Light Rail Transit Operator notified. Plan discussed with Light Rail Transit Operator and Pharmacist. Repeat lactic level at 2100. Switch IVFs to LR. Scheduled Ofirmev; prn Dilaudid. Restart Clonidine and Diltiazem.
[2024-12-07] MEDS: LR 1000 IV (16:10)
[2024-12-07] MEDS: OFIRMEV 100 IV ×2 (16:10→21:46)
[2024-12-07] MEDS: CATAPRES 0.1 MG TUBE ×2 (16:11→21:47)
[2024-12-07] MEDS: CARDIZEM 60 MG TUBE ×2 (16:11→21:46)
--- NOTE | 2024-12-07 16:18 | W.PN.HOSP.TC ---
Today's Communication/Plan
-
Assessment / Plan
Assessment / Plan
NAD, endotracheally intubated, A-line, IJ CVC
Scleral Anicteric
MMM
No JVD
Mechanical sounds
RRR, S1/S2
Soft, NT, ND, BS+, colostomy with a pink stoma, antibiotic
Warm, Dry
AAOx3
Calm
Acute hypoxemic respiratory
SAT SBT
ICU management
Extubate when RSBI >105
Sigmoid colon perforation secondary to severe acute stercoral colitis
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
IV fluid
Maintain NG tube Barnard catheter
Antibiotics
Blood cultures
SVT
Continue Dilt
Hypertension
Hold clonidine
Hypothyroidism
Continue replacement
Anticipated Discharge: > 48 hours
Subjective/Interval History
-
Date of Service: December 07, 2024
Seen and examined. No new complaints. No acute overnight events.
Objective Data
-
Labs:
Laboratory Results
12/07/24 12/07/24 12/07/24
05:28 06:23 09:51
WBC 10.9 H
Hgb 13.1
Hct 37.8
Plt Count 388
HCO3
Sodium Cancelled Cancelled 132 L
Potassium Cancelled Cancelled 3.7
Chloride Cancelled Cancelled 102
Carbon Dioxide Cancelled Cancelled 22
BUN Cancelled Cancelled 18 H
Creatinine Cancelled Cancelled 0.8
Glucose Cancelled Cancelled 165 H
Calcium Cancelled Cancelled 7.4 L
12/07/24 12/07/24
12:08 15:05
WBC
Hgb
Hct
Plt Count
HCO3 21.1
Sodium 128 L
Potassium 3.5
Chloride 101
Carbon Dioxide 23
BUN 19 H
Creatinine 0.7
Glucose 146 H
Calcium 8.0 L
Vital Signs:
Vital Signs
Temp Pulse Resp BP Pulse Ox
97.5 F 85 18 156/62 100
12/07/24 15:38 12/07/24 16:11 12/07/24 16:00 12/07/24 16:11 12/07/24 16:00
I&O
12/06/24 12/07/24 12/08/24
06:59 06:59 06:59
Intake Total 1895.4 / 2034.5 1289.6 / 1289.6
Output Total 650 / 695 360 / 360
Balance 1245.4 / 1339.5 929.6 / 929.6
--- NOTE | 2024-12-07 16:45 | PTCARENOTE ---
PT at bedside. Patient oob to chair x1RW at 1630. Weaned to RA. Pulse ox 96%. No other changes.
[2024-12-07] MEDS: LOVENOX 40 MG SC (17:43)
[2024-12-07 17:51] LABS: Glucose - Point of Care 134 mg/dl (70-99)
[2024-12-07] MEDS: MYLICON 80 MG PO (19:40)
--- NOTE | 2024-12-07 20:45 | PTCARENOTE ---
Assumed care at 1900. Patient was OOB to chair and assisted back into bed. Denies pain. Abdomen tender with hypoactive bowel sounds. Colostomy with small amount of serosanguineous drainage. NGT to continuous suction with no output. Midline abdominal
incision aquacell with old drainage and remains unchanged from admission onto floor. Satting 95 percent on room air. IVF infusing. NSR with first degree on the monitor.
--- NOTE | 2024-12-07 23:35 | PTCARENOTE ---
Assumed care at 1900. Satting 95 percent on room air. IVF infusing. NSR with first degree on the monitor. A line discontinued. Levo restarted at 2323 to maintain maps above 65.
[2024-12-08] VITALS (49 sets, daily range): BP systolic 97–169; BP diastolic 44–89; PULSE 96; O2SAT 95; BMI 24.5
--- NOTE | 2024-12-08 | PTCARENOTE ---
No changes from previous assessment. Levophed restarted at 2323 to maintain maps above 65. Around 0015 patient complained of mild chest pain describing it as indigestion with SOB. EKG obtained and unchanged. Symptoms spontaneously resolved by the
time the EKG was done. sp02 sats 95 percent with no increased WOB.
[2024-12-08] MEDS: ZOSYN 50 IV ×4 (00:05→18:03)
[2024-12-08 00:26] LABS: Glucose - Point of Care 139 mg/dl (70-99)
[2024-12-08] MEDS: NOVOLOG FLEXPEN-LOW RESISTANCE SC ×4 (00:28→18:29)
[2024-12-08] MEDS: LR 1000 IV ×2 (02:02→12:26)
[2024-12-08] MEDS: OFIRMEV 100 IV ×2 (03:52→12:02)
[2024-12-08 03:57] LABS: Hematocrit 34.3 % (37.0-47.0); Hemoglobin 11.2 g/dL (12.0-16.0); Mean Corp Hgb Conc. 32.7 g/dL (33.0-37.0); Mean Corpuscular Volume 90.5 fL (81.0-99.0); Nucleated Red Blood Cells % 0 %; Platelet Count 295 10^3/uL (130-400); Red Cell Dist. Width 13.9 % (11.5-14.5)
[2024-12-08 04:01] LABS: ALT (SGPT) 16 U/L (0-35); AST (SGOT) 33 U/L (14-36); Albumin 2.7 g/dl (3.5-5.0); Alkaline Phosphatase 57 U/L (38-126); Blood Urea Nitrogen 23 mg/dl (7-17); Calcium 7.9 mg/dl (8.4-10.2); Carbon Dioxide 24 mmol/L (22-30); Chloride 102 mmol/L (98-107); Estimated Creatinine Clearance 40 ml/min; Glucose 137 mg/dl (70-99); Magnesium 2.4 mg/dl (1.6-2.3); Potassium 3.7 mmol/L (3.5-5.1); Sodium 129 mmol/L (135-145); Total Protein 5.1 g/dl (6.3-8.2); eGFR > 60.00
[2024-12-08] MEDS: ARMOUR THYROID 30 MG TUBE (05:47)
[2024-12-08] MEDS: KCL 160 MEQ IV (05:47)
--- NOTE | 2024-12-08 06:00 | PTCARENOTE ---
No changes from previous assessment. No output from NGT overnight. NOn further episodes of chest pain.
[2024-12-08 06:10] LABS: Glucose - Point of Care 124 mg/dl (70-99)
--- NOTE | 2024-12-08 07:43 | W.PN.INTV ---
Today's Communication / Plan
Recommendations
Continue to wean Levophed (Currently off at time of this note)
Follow blood pressures
Decrease Clonidine to BID
Likely able to downgrade from ICU today
Assessment
-
Assessment:
This is an 89 y/o female with pmhx of recurrent Lyme disease, essential hypertension, SVT, hypothyroidism, anxiety who presented to the ED on 12/06 with ongoing constipation, worsened abdominal pain starting that same morning who was found to have
severe acute stercoral colitis of the proximal sigmoid colon and underwent exploratory laparotomy, sigmoid resection with takedown splenic flexure, disimpaction and end colostomy on that same day.
Plan:
Sigmoid Colon Perforation
Severe Acute Stercoral Colitis
Constipation
Per CT Abdomen/Pelvis: SEVERE ACUTE STERCORAL COLITIS in the PROXIMAL SIGMOID COLON secondary to SEVERE CONSTIPATION with colonic perforation, pneumatosis in the colonic wall, and a small amount of extraluminal air in the pelvis. Small volume of
pelvic ascites.
S/p exploratory laparotomy, sigmoid resection with takedown splenic flexure, disimpaction and end colostomy on 12/06
Cultures taken in the OR Pending
Patient successfully extubated on 12/07
Was on Levophed much earlier this AM by staff report, not on it when I saw her around 9:00AM. Blood pressures have remained normal or elevated since Levophed has been removed.
Continue NG tube per ColoRectal Surgery
Continue Zosyn (Start date 12/06; Day 3 antibiotics today)
Continue Zofran for Nausea
ColoRectal Surgery is following, will appreciate their insight-
Replete Electrolytes to keep K >4, Mag >2
Maintain blood glucose between 140-180 post operatively. Last A1c 5.5 (12/07/2024)
Continue to follow hemoglobin and hematocrit. Transfuse as necessary to keep Hg >7. Goal to keep Platelets >50
Urinary retention
Barnard catheter in place, placed on 12/06
Will monitor
Hyponatremia
Sodium 127 on admission
Continue IV fluids (Normosol)
Will monitor
History of SVT
Continue Diltiazem with hold parameters for SBP 100, HR less than 60
Continue prn metoprolol for HR >120
Essential Hypertension
Hypotension
By staff report much fluctuation in blood pressures overnight, requiring Levophed of up to 8 for hypotension while sleeping
Weaning off levophed
Continue clonidine now BID with hold parameters for SBP less than 120
Hypothyroidism
TSH 1.45
Continue armour thyroid
Subjective Dataa
Subjective Data
Date of Service:
Date of Service: December 08, 2024
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
Subjective:
Patient was resting comfortably in her room when I arrived with daughter (Ayla) at bedside. She reports some mild, 'annoying' gastric pain, but it is not troublesome enough that she wants medications. She has no other questions or concerns at this
time.
Review of Systems
General: Fever (Denies) and Chills (Denies)
GI: Abdominal Pain (See HPI)
Objective Data
Data Reviewed
Vital Signs / I&O / Oxygen:
Vital Signs
Temp Pulse Resp BP Pulse Ox
97.8 F 80 16 136/57 95
12/08/24 03:13 12/08/24 06:15 12/08/24 06:15 12/08/24 06:15 12/08/24 06:15
Intake and Output
12/07/24 12/08/24 12/09/24
06:59 06:59 06:59
Intake Total 1895.4 / 2034.5 3289.0 / 3289.0
Output Total 650 / 695 975 / 975
Balance 1245.4 / 1339.5 2314.0 / 2314.0
SaO2 [CPAP] 100
SaO2 [A/C] 100
SaO2 95
Nasal Cannula flow liters per 1
minute
Physical Exam
General: Comfortable
HEENT: Normocephalic and Anicteric
Cardiovascular: S1-S2 and Regular Rhythm
Respiratory: Clear
GI: Other (Ostomy site with good color, no signs of infection, surgical bandage in place over abdomen)
Neurology: Awake, Alert and Oriented
Skin: Warm and Dry
Labs/Micro/Reports
Lab Data
12/08/24 03:25
12/08/24 03:25
Laboratory Results
12/07/24
12:08
pH 7.44
pCO2 31 L
pO2 174 H
HCO3 21.1
O2 Delivery Level Not Reportable
Microbiology
12/06/24 17:45 Blood/Venous Blood Culture - Preliminary
No Growth in 24 hours- Final report to follow
12/06/24 17:45 Blood/Venous Blood Culture - Preliminary
No Growth in 24 hours- Final report to follow
12/06/24 20:30 Abdomen Gram Stain - Preliminary
--- NOTE | 2024-12-08 09:46 | PN.CDI ---
CDI
- -
CDI:
Physician Documentation Request
Admit Date: 12/06/24 18:43
Dear Doctor Cornelius,
Please review the following and provide your response in the progress notes.
Clinical Indicators:
Pt admitted with stercoral colitis/Sigmoid colon perforation -Pt on IV Zosyn
Transfill Technician consult,' Leukocytosis with sepsis due to transient bacteremia from perforated viscus..'
On admission WBC 15.4,Respirations 33, Temp 96.7
Please update the status of sepsis documented in thinner sprayer consult:
Sepsis-POA -a valid diagnosis
- Systemic manifestations of infection, with 2 or more SIRS criteria which include:
- Fever >100.9 degrees F or hypothermia < 96.8 degrees F
- Leukocytosis - WBC > 12,000 or leukopenia - WBC < 4,000 or > 10% bands
- Tachycardia > 90 beats per minute
- Tachypnea - RR > 20 breaths per minute or PaCO2 , 32mmHg
Source: Merck Manual 2013
Sepsis-Ruled out
Other ( please specify)
Use of terms such as suspected, likely, concern for, or probable (associated with a specific diagnosis that is being evaluated, monitored, or treated as if it exists) are acceptable and can be coded in the inpatient setting, when documented at the
time of discharge.
Thank you,
Inessa Lerner RN
CDI Specialist
[facility]
Please use your independent medical judgment in providing your response.
--- NOTE | 2024-12-08 09:52 | W.PN.CRS1 ---
Today's Communication / Plan
-
maintain ngt until bowel function
monitor wbc
continue iv abx
OOB
Assessment/Plan
-
POD#2 Exploratory laparotomy, sigmoid resection with takedown splenic flexure, disimpaction, and end colostomy
WBC: 21.0 (10.9), Hgb 11.2 (13.1)
-Maintain NGT until bowel function
-Trend WBC, no plans for imaging today (vitals normal, afebrile, no pain)
-OR pathology pending
-OOB with PT/OT
-Wound RN for colostomy teaching
-Maintain midline incision. OKay for wound RN to change, syd to be left in place. Gauze and paper tape on top of wound.
-Continue mckinney for I/O's
-Wean levophed per primary team
-Continue IV antibiotics
-OR cultures pending
-Lovenox for DVT prophylaxis. TEDs/SCDs in place.
Subjective Data
Procedure
12/06/24- Exploratory laparotomy, sigmoid resection with takedown splenic flexure, disimpaction, and end colostomy
Subjective Data
Date of Service: December 08, 2024
Patient is extubated. She states her pain is controlled. Denies nausea or vomiting. No other complaints.
Objective Data
-
Vital Signs
Temp Pulse Resp BP Pulse Ox
97.9 F 81 16 144/61 95
12/08/24 08:16 12/08/24 08:00 12/08/24 08:00 12/08/24 08:00 12/08/24 08:00
Intake & Output
12/07/24 12/08/24 12/09/24
06:59 06:59 06:59
Intake Total 1895.4 / 2034.5 3289.0 / 3390.8 201.8 / 201.8
Output Total 650 / 695 975 / 1025 100 / 100
Balance 1245.4 / 1339.5 2314.0 / 2365.8 101.8 / 101.8
Intake:
Oral fluids 0 / 0
IV fluids (Total) 1815.4 / 1954.5 2369.0 / 2470.8 201.8 / 201.8
LR 1000 / 1000
Lr 1,000 ml @ 100 mls/hr IV . 1250 / 1350 200 / 200
Q10H [facility] Rx#:[id number]
Normosol 651.6 / 751.6 950 / 950
fentanyl 34.9 / 42.4 27.5 / 27.5
levo 80.5 / 106.8 118.4 / 120.2 1.8 / 1.8
propofol 48.4 / 53.7 23.1 / 23.1
IV piggybacks 50 / 50 650 / 650
Amount instilled into GI Tube ( 30 / 30 270 / 270
Total)
[place] Sump 30 / 30 270 / 270
Output:
Gastrointestinal tube output ( 0 / 0
Total)
[place] Sump 0 / 0
Urine, Mckinney 650 / 695 975 / 1025 100 / 100
Lab Results
12/08/24 03:25
12/08/24 03:25
Physical Exam
-
General: No Acute Distress and AOx3
Abdomen: Soft, Non Distended, Non Tender and Other (colostomy warm and pink, no output yet. )
Wound: Dressing in Place
--- NOTE | 2024-12-08 09:55 | PN.CDI ---
CDI
- -
CDI:
Physician Documentation Request
Admit Date: 12/06/24 18:43
Dear Doctor Cornelius,
Please review the following and provide your response in the progress notes.
Clinical Indicators:
Pt admitted with stercoral colitis/Sigmoid colon perforation -Pt on IV Zosyn
Small Business Representative consult,' Patient is currently on Levophed hence her antihypertensives + Cardizem are being held...- In the meantime, continue to wean down Levophed hopefully to off, while keeping MAP >65...Give 1g of calcium as her calcium level was
slightly reduced, which can cause hypotension...'
Selected Entries
12/07/24
02:15 12/07/24
09:15 12/07/24
09:19
Blood pressure 96/46
MAP (Q-Vmea-Rsxfvje Monitor) 59 55
12/07/24
09:19 12/07/24
18:19 12/07/24
23:00
Blood pressure 80/37
MAP (R-Ihtt-Jjmpqgb Monitor) 55 51
12/07/24
23:01 12/07/24
23:15 12/08/24
01:45
Blood pressure 92/47 99/44 97/45
Please clarify which of the following is the most likely etiology of the above symptoms and treatment rendered/IV Levophed :
Septic shock
Hypovolemic shock - indicate if due to surgery, trauma or other etiology
Postoperative shock,
Hypotension only
Other ( please specify)
Use of terms such as suspected, likely, concern for, or probable (associated with a specific diagnosis that is being evaluated, monitored, or treated as if it exists) are acceptable and can be coded in the inpatient setting, when documented at the
time of discharge.
Thank you,
Inessa Lerner RN
CDI Specialist
[place] [facility]
Please use your independent medical judgment in providing your response.
--- NOTE | 2024-12-08 10:00 | PN.CDI ---
CDI
- -
CDI:
Physician Documentation Request
Admit Date: 12/06/24 18:43
Dear Doctor Cornelius,
Please review the following and provide your response in the progress notes.
Clinical Indicators:
Pt admitted with stercoral colitis/Sigmoid colon perforation -Pt on IV Zosyn
Progress note 12/07, ' ... endotracheally intubated...Acute hypoxemic respiratory ...SAT SBTICU managementExtubate when RSBI >105...'
Please further specify the documented ' .Acute hypoxemic respiratory...'
Acute Hypoxemic Respiratory Failure
Acute Hypoxic Respirator insufficiency
Other ( please specify)
Additional information for Respiratory Failure:
Recognized criteria for Respiratory Failure (Source: Libra Parr. 2019 January 04.
Documentation tips: Acute Respiratory Failure, The Hospitalist.)
ABGs: (1 or more) Symptoms Please indicate type if known
1. p)2 <60 or RA SPO2 <91% on RA 1. Tachypnea, SOB, dyspnea Hypoxic
2. pCO2 >45 and pH <7.35 2. Use of accessory muscles Hypercapnic
3. pO2 decrease of pCO2 increase by 3. Pallor or cyanosis Hypoxic and Hypercapnic
10 mmHg from baseline if known 4. Anxiety or restlessness Unable to determine
4. P/F Ratio (pO2/FiO2)nless than 300 5. Unable to speak in full sentences
Use of terms such as suspected, likely, concern for, or probable (associated with a specific diagnosis that is being evaluated, monitored, or treated as if it exists) are acceptable and can be coded in the inpatient setting, when documented at the
time of discharge.
Thank you,
Inessa Lerner RN
CDI Specialist
[place] [facility]
Please use your independent medical judgment in providing your response.
[2024-12-08] MEDS: CARDIZEM TUBE (11:23)
[2024-12-08] MEDS: CATAPRES TUBE ×2 (11:23→20:40)
--- NOTE | 2024-12-08 12:00 | PTCARENOTE ---
Systems reviewed, no acute changes in assessment. on RA. Remains off Levophed. BP meds with hold parameters. Albumin given. OOB chair, worked with PT. PRN simethicone provided for burping. Pt reports nausea intermittently, this is not new, pt says
its from hx lyme disease. Pt reports abd pain is minimal, 3/10. Ostomy unchanged from this morning. Family at bedside, thankful for care. Call corbett within reach.
[2024-12-08] MEDS: FLEXBUMIN 100 IV (12:05)
[2024-12-08 12:17] LABS: Glucose - Point of Care 102 mg/dl (70-99)
[2024-12-08] MEDS: MYLICON 80 MG PO (12:30)
[2024-12-08] MEDS: CATAPRES 0.1 MG TUBE (12:39)
[2024-12-08] MEDS: CARDIZEM 30 MG TUBE ×3 (13:40→22:07)
--- NOTE | 2024-12-08 15:10 | W.PN.HOSP.TC ---
Today's Communication/Plan
-
Assessment / Plan
Assessment / Plan
NAD, endotracheally intubated, A-line, IJ CVC
Scleral Anicteric
MMM
No JVD
Mechanical sounds
RRR, S1/S2
Soft, NT, ND, BS+, colostomy with a pink stoma, antibiotic
Warm, Dry
AAOx3
Calm
Acute hypoxemic respiratory
Extubated
Sigmoid colon perforation secondary to severe acute stercoral colitis
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
IV fluid
Maintain NG tube Barnard catheter
Antibiotics
Blood cultures
SVT
Continue Dilt
Hypertension
Hold clonidine
Hypothyroidism
Continue replacement
Anticipated Discharge: > 48 hours
Subjective/Interval History
-
Date of Service: December 08, 2024
Seen and examined. No acute complaints no acute overnight events.
Extubated
NGT remains in place
Colostomy without gas 7 fluid no stool
Stoma looks good
Objective Data
-
Labs:
Laboratory Results
12/08/24
03:25
WBC 21.0 H
Hgb 11.2 L
Hct 34.3 L
Plt Count 295 D
Sodium 129 L
Potassium 3.7
Chloride 102
Carbon Dioxide 24
BUN 23 H
Creatinine 0.8
Glucose 137 H
Calcium 7.9 L
Total Bilirubin 0.7
AST 33
ALT 16
Alkaline Phosphatase 57
Vital Signs:
Vital Signs
Temp Pulse Resp BP Pulse Ox
97.5 F 83 12 129/63 93
12/08/24 12:13 12/08/24 13:40 12/08/24 11:00 12/08/24 13:40 12/08/24 15:02
I&O
12/07/24 12/08/24 12/09/24
06:59 06:59 06:59
Intake Total 1895.4 / 2034.5 3289.0 / 3390.8 911.8 / 911.8
Output Total 650 / 695 975 / 1025 275 / 275
Balance 1245.4 / 1339.5 2314.0 / 2365.8 636.8 / 636.8
--- NOTE | 2024-12-08 15:24 | CM ---
F/U: Patient was extubated yesterday and NG tube remains in place, PT/OT recommending SNF so met with the daughter/ patient, they are interested, so provided a list from Medicare.gov to choose from. PLAN: SNF when ready.
--- NOTE | 2024-12-08 16:00 | PTCARENOTE ---
Systems reviewed, no changes. Pain is controlled. Pt thankful for care. Daughter and son at bedside.
[2024-12-08] MEDS: LOVENOX 40 MG SC (18:02)
[2024-12-08] MEDS: MYLICON 80 MG TUBE ×2 (18:02→22:19)
[2024-12-08 18:07] LABS: Glucose - Point of Care 93 mg/dl (70-99)
[2024-12-08] MEDS: TYLENOL ORAL SOLUTION 650 MG TUBE (22:19)
[2024-12-09] VITALS (16 sets, daily range): BP systolic 110–185; BP diastolic 53–150; PULSE 92; BMI 24.7
[2024-12-09] MEDS: ZOSYN 50 IV ×4 (00:12→17:48)
[2024-12-09] MEDS: NOVOLOG FLEXPEN-LOW RESISTANCE SC ×4 (00:20→17:57)
[2024-12-09 00:23] LABS: Glucose - Point of Care 89 mg/dl (70-99)
[2024-12-09] MEDS: LR 1000 IV (02:05)
[2024-12-09 04:39] LABS: Hematocrit 32.3 % (37.0-47.0); Hemoglobin 10.7 g/dL (12.0-16.0); Mean Corp Hgb Conc. 33.1 g/dL (33.0-37.0); Mean Corpuscular Volume 91.8 fL (81.0-99.0); Nucleated Red Blood Cells % 0 %; Platelet Count 259 10^3/uL (130-400); Red Cell Dist. Width 14.2 % (11.5-14.5)
[2024-12-09 04:52] LABS: Blood Urea Nitrogen 16 mg/dl (7-17); Calcium 8.4 mg/dl (8.4-10.2); Carbon Dioxide 26 mmol/L (22-30); Chloride 104 mmol/L (98-107); Estimated Creatinine Clearance 46 ml/min; Glucose 80 mg/dl (70-99); Potassium 3.7 mmol/L (3.5-5.1); Sodium 132 mmol/L (135-145); eGFR > 60.00
[2024-12-09] MEDS: ARMOUR THYROID 30 MG TUBE (06:10)
[2024-12-09 06:19] LABS: Glucose - Point of Care 74 mg/dl (70-99)
[2024-12-09] MEDS: CARDIZEM 30 MG TUBE ×3 (07:45→17:48)
[2024-12-09] MEDS: CATAPRES 0.1 MG TUBE ×3 (07:45→22:40)
--- NOTE | 2024-12-09 08:04 | W.PN.INTV ---
Today's Communication / Plan
Recommendations
Continue NGT to LCWS
Monitor NGT output
Defer starting diet to surgery
Pain control
Postoperative management as per colorectal surgery
Maintain BG >100 and <180
Encourage incentive spirometer
Continue antibiotics
Follow-up blood and sputum culture
prn DuoNebs and will consider a short duration of scheduled DuoNebs to help improve her cough (although she says her cough + SOB are minimal and are not bothersome or significant)
DNR/DNI
Patient is stable for downgrade out of ICU to telemetry. No additional recommendations at this time. Landmen/Pulmonary service will now sign off. Please call back with any questions or concerns
Assessment
-
Assessment:
This is an 89 y/o female with pmhx of recurrent Lyme disease, essential hypertension, SVT, hypothyroidism, anxiety who presented to the ED on 12/06 with ongoing constipation, worsened abdominal pain starting that same morning who was found to have
severe acute stercoral colitis of the proximal sigmoid colon and underwent exploratory laparotomy, sigmoid resection with takedown splenic flexure, disimpaction and end colostomy and transferred to ICU for postoperative management.
Impression:
#Sigmoid colon perforation due to stercoral colitis from constipation s/p exploratory laparotomy, sigmoid resection with takedown splenic flexure, disimpaction, and end colostomy (POD#3)
#Leukocytosis with sepsis due to transient bacteremia from perforated viscus
#Lactic acidosis � now resolved
#Hypocalcemia � now resolved
#Chronic hyponatremia � at baseline currently
#History of Lyme disease with history of adrenal insufficiency and chronic fatigue
#History of EBV
#History of SVT
#White-coat hypertension
#GERD
#Glaucoma
Plan:
- Patient has history of constipation which had worsened over the last 1-2 weeks prior to arrival
- CT A/P from 12/06/2024 showed severe acute stercoral colitis in the proximal sigmoid colon with severe constipation and colonic perforation with free air in the pelvis + small amount of ascites
- Patient emergently went to the OR for an ex-lap where a large perforation in sigmoid colon was found with free intra-abdominal air, and a moderate amount of murky fluid in the pelvis which was cultured. Also hard, inspissated stool throughout the
entire transverse colon and left colon which was removed. There was viable bowel throughout, thankfully - patient remained intubated and then transferred to the ICU
- Postoperative management as per colorectal surgery
- She currently has NGT in place on LCWS
- Defer starting diet to general surgery; they wish for her to have a bowel movement before she can start diet - currenetly NPO
- Pain control
- Intraoperative peritoneal fluid cultures grew phillip-sensitive E. coli
- Continue broad spectrum Abx with Zosyn - can likely start to narrow ABx within the next 24-48 hrs assuming she continues to clinically improve and remains afebrile for 48 hours prior
- Follow-up blood cultures collected on 12/06/2024 (shows NGTD)
- Sputum culture also collected given her cough however the antibiotics above will also cover any respiratory infection as a left lower lobe pneumonia is possible; she may very well just have increased phlegm as she is unable to take deep breath and
cough as normal in light of recent abdominal surgery
- prn DuoNebs are ordered if she needs it (and she is aware of this)
- Her cough + SOB are not bothersome or significant to her, and she is saturating well on room air with SpO2 >94-95%
- She has now been extubated since 12/07, and is breathing comfortably on room air, saturating 95-96%
- Maintain keep SpO2 >90-94%
- Continue aspiration precautions; keep HOB >30-45�
- prn nebulized bronchodilators - not currently bronchospastic
- Given that she has a mild cough with SOB, CXR ordered today showing worsening retrocardiac opacification as well as some bilateral pulmonary vascular congestion to my view
- Will stop IVF and will administer lasix x1; reassess clinically for additional Lasix needed
- Patient has been off levophed since yesterday AM. She is s/p IV albumin
- Maintain MAP >65
- I adjusted her cardizem, lowering from 60mg TID to 30mg QID, and lowered her clonidine from 0.1mg TID to 0.1mg BID - all BP meds will have holding paremeters
- Given that she is now more hypertensive, I worry this is partially rebound HTN from lowering her clonidine. I will raise her clonidine back to 0.1mg TID now
- She does carry history of SVT - use prn IV Lopressor for sustained tachycardia with HR >110�120
- Trend serum Na level with goal 130-135 (her average serum sodium levels since 2019 have been between 130�134, with sodium as low as 127 on 12/06/2024)
- Replete electrolytes with K>4, Mg>2
- Maintain euglycemia with goal BG >100 and <180; HbA1c: 5.5 on 12/07/2024
- Trend H/H and transfuse if needed to keep Hb>7g/dL; keep plt>50k (given her post-operative status)
- DVT ppx: LMWH
Code status: DNR/DNI
Patient is stable for downgrade out of ICU to telemetry. This was confirmed to be appropriate by colorectal surgery. Hospitalist also made aware of disposition and is in agreement. No additional recommendations at this time.
Landmen/Pulmonary service will now sign off. Thank you for allowing us to be involved in the care of this patient. Please reconsult if there are any additional questions/concerns, or if patient's respiratory status deteriorates.
Total time spent today was 38 minutes for this encounter. Time includes reviewing laboratory test/imaging results, reviewing pertinent medical records, obtaining and reviewing medical history, performing an appropriate exam, ordering medications,
tests and procedures. Time also includes documentation of this encounter, coordinating patient care and communicating with other healthcare professionals. Total time does not include separately billed tests performed on this date of service.
Subjective Dataa
Subjective Data
Date of Service:
Date of Service: December 09, 2024
Chief Complaint: Landmen Follow Up
Subjective:
Patient seen and evaluated this morning. Has been off of Levophed since yesterday. Afebrile overnight. She feels well, still with a cough but it is not overly bothersome. Her NGT is on low continuous wall suction. Current heart rate is 88 and
BP 171/65. She has not had any flatus and she denies abdominal discomfort at this time.
Review of Systems
General: Other (Negative unless mentioned above)
Objective Data
Data Reviewed
Vital Signs / I&O / Oxygen:
Vital Signs
Temp Pulse Resp BP Pulse Ox
98.9 F 84 22 158/58 96
12/09/24 11:03 12/09/24 11:00 12/09/24 11:00 12/09/24 10:00 12/09/24 07:00
Intake and Output
12/08/24 12/09/24 12/10/24
06:59 06:59 06:59
Intake Total 3289.0 / 3390.8 2501.8 / 2581.8 400 / 400
Output Total 975 / 1025 1400 / 1400
Balance 2314.0 / 2365.8 1101.8 / 1181.8 400 / 400
SaO2 [CPAP] 100
SaO2 [A/C] 100
SaO2 96
Nasal Cannula flow liters per 1
minute
Physical Exam
General: Respiratory Distress (negative), Comfortable, Chills (negative) and Sweats (negative)
HEENT: Normocephalic and Anicteric
Cardiovascular: S1-S2 and Peripheral Edema (negative)
Respiratory: Wheeze (negative), Crackles (Bibasilar (L >R)), Rhonchi (negative), Non-Labored Respirations and Stridor (negative)
GI: Soft, Non Distended, Tender (Periumbilical region near colostomy/recent operative site), Other (Left lower quadrant colostomy with pink colored bowel, no purulence or bleeding seen) and Other (hypoactive bowel sounds)
Neurology: AO x 3 and Tremors (negative)
Skin: Warm, Dry, Cyanosis (negative) and Jaundice (negative)
Labs/Micro/Reports
Lab Data
12/09/24 04:14
12/09/24 04:14
Microbiology
12/06/24 20:30 Abdomen Wound Culture - Preliminary
Escherichia coli
12/06/24 20:30 Abdomen Gram Stain - Preliminary
12/06/24 17:45 Blood/Venous Blood Culture - Preliminary
No Growth in 48 hours- Final report to follow
12/06/24 17:45 Blood/Venous Blood Culture - Preliminary
No Growth in 48 hours- Final report to follow
12/06/24 20:30 Abdomen Anaerobic Culture - Preliminary
Culture pending. Anaerobic cultures are examined after 3
days incubation. Additional information to follow.
--- NOTE | 2024-12-09 08:20 | PTCARENOTE ---
Rec'd pt at 0700. Pt AAOx3, follows commands, KOVACS. Monitor SR. Pt OOB to bathroom with assist of 1 and rolling walker. Voiding yellow urine. Pt stood at sink for mouth/denture care. Assisted to recliner chair. Midline abdominal incision with
aquacell intact. Left colostomy in place, minimal output. NGT to LCWS, green drainage. Daughter at bedside.
[2024-12-09] MEDS: ZESTRIL 10 MG PO (08:50)
--- NOTE | 2024-12-09 10:27 | W.PN.CRS1 ---
Addendum entered and electronically signed by Vini Wilkinson MD 12/09/24 10:44:
I saw and examined the patient independently.
The Tie Tape Machine Operator's note was reviewed and I agree with the note, assessment and plan except where noted below.
Comment: This is an 89-year-old female postoperative day 3 from open Eric's. Ostomy pink but edematous. Expected ileus.
Plan as below
Original Note:
Today's Communication / Plan
-
maintain ngt
await bowel function
continue abx
OOB with PT/OT
Assessment/Plan
-
POD#3 Exploratory laparotomy, sigmoid resection with takedown splenic flexure, disimpaction, and end colostomy
WBC: 17.2 (21.0, 10.9), Hgb 10.7 (11.2, 13.1)
-Maintain NGT until bowel function - will consider TPN in the next few days if remains NPO
-Trend WBC, no plans for imaging today- trending down
-OR pathology pending
-OOB with PT/OT
-Wound RN for colostomy teaching
-Maintain midline incision. OKay for wound RN to change, syd to be left in place. Gauze and paper tape on top of wound.
-Levophed now off
-Continue IV antibiotics
-OR cultures pending
-Lovenox for DVT prophylaxis. TEDs/SCDs in place.
Subjective Data
Procedure
12/06/24- Exploratory laparotomy, sigmoid resection with takedown splenic flexure, disimpaction, and end colostomy
Subjective Data
Date of Service: December 09, 2024
Patient states she feels well. Her pain is a 2-3/10. Her colostomy is warm and pink with some SS output.
Objective Data
-
Vital Signs
Temp Pulse Resp BP Pulse Ox
98.1 F 103 19 152/61 96
12/09/24 07:13 12/09/24 09:00 12/09/24 09:00 12/09/24 08:47 12/09/24 07:00
Intake & Output
12/08/24 12/09/24 12/10/24
06:59 06:59 06:59
Intake Total 3289.0 / 3390.8 2501.8 / 2581.8 160 / 160
Output Total 975 / 1025 1400 / 1400
Balance 2314.0 / 2365.8 1101.8 / 1181.8 160 / 160
Intake:
Oral fluids 0 / 0 0 / 0
IV fluids (Total) 2369.0 / 2470.8 1921.8 / 2001.8 160 / 160
Lr 1,000 ml @ 80 mls/hr IV . 1250 / 1350 192 / 1999 160 / 160
[id number] [facility] Rx#:[id number]
Normosol 950 / 950
fentanyl 27.5 / 27.5
levo 118.4 / 120.2 1.8 / 1.8
propofol 23.1 / 23.1
IV piggybacks 650 / 650 400 / 400
Feeding tube flush amount 100 / 100
Amount instilled into GI Tube ( 270 / 270 80 / 80
Total)
[place] Sump 270 / 270 80 / 80
Output:
Gastrointestinal tube output ( 0 / 0 225 / 225
Total)
[place] Sump 0 / 0 225 / 225
Urine, Barnard 975 / 1025 1175 / 1175
Other:
Number of approximated MODERATE 1
amounts of urine
Lab Results
12/09/24 04:14
12/09/24 04:14
Physical Exam
-
General: No Acute Distress and AOx3
Abdomen: Soft, Non Distended, Non Tender and Other (colostomy edematous, no output in bag, just SS output minor)
Skin: Warm and Dry
Wound: Dressing in Place
--- NOTE | 2024-12-09 11:53 | PTCARENOTE ---
Pt remained OOB in chair from [id number]. Pt assisted back to bed, resting comfortably with family at bedside. Assessment unchanged.
[2024-12-09 12:23] LABS: Glucose - Point of Care 68 mg/dl (70-99)
[2024-12-09] MEDS: DEXTROSE 50% SYRINGE 12.5 GRAMS IV (12:26)
[2024-12-09 12:43] LABS: Glucose - Point of Care 133 mg/dl (70-99)
[2024-12-09] MEDS: LASIX 20 MG IV (14:35)
--- NOTE | 2024-12-09 15:42 | W.PN.HOSP.TC ---
Addendum entered and electronically signed by Abundio Shields MD 12/09/24 16:25:
Shock - Hypovolemic
Acute hypoxic respiraotry failure
Sepsis
Original Note:
Today's Communication/Plan
-
Assessment / Plan
Assessment / Plan
NAD, endotracheally intubated, A-line, IJ CVC
Scleral Anicteric
MMM
No JVD
Mechanical sounds
RRR, S1/S2
Soft, NT, ND, BS+, colostomy with a pink stoma, antibiotic
Warm, Dry
AAOx3
Calm
Acute hypoxemic respiratory
Extubated
Sigmoid colon perforation secondary to severe acute stercoral colitis
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
IV fluid
Maintain NG tube until bowel function returns
Antibiotics
Blood cultures
SVT
Continue Dilt
Hypertension - uncontrolled likley developed rebound from clonidine being on hold
ICU resume via tube
Hypothyroidism
Continue replacement
Anticipated Discharge: > 48 hours
Subjective/Interval History
-
Date of Service: December 09, 2024
seen and examined. No new complaints. No acute overnight events
Sitting in bedside chair comfortable NGT remains in place
Burping. No air in the colostomy is some liquid.
Objective Data
-
Labs:
Laboratory Results
12/09/24
04:14
WBC 17.2 H
Hgb 10.7 L
Hct 32.3 L
Plt Count 259
Sodium 132 L
Potassium 3.7
Chloride 104
Carbon Dioxide 26
BUN 16
Creatinine 0.7
Glucose 80
Calcium 8.4
Vital Signs:
Vital Signs
Temp Pulse Resp BP Pulse Ox
98.8 F 82 21 156/63 96
12/09/24 15:30 12/09/24 15:00 12/09/24 15:00 12/09/24 14:38 12/09/24 07:00
I&O
12/08/24 12/09/24 12/10/24
06:59 06:59 06:59
Intake Total 3289.0 / 3390.8 2501.8 / 2581.8 400 / 400
Output Total 975 / 1025 1400 / 1400
Balance 2314.0 / 2365.8 1101.8 / 1181.8 400 / 400
[2024-12-09] MEDS: KCL 270 MEQ IV (16:40)
[2024-12-09] MEDS: LOVENOX 40 MG SC (17:48)
[2024-12-09 17:53] LABS: Glucose - Point of Care 81 mg/dl (70-99)
[2024-12-09] MEDS: DUONEB 3 ML INH (19:41)
[2024-12-09] MEDS: ZOFRAN 4 MG IV (20:24)
[2024-12-10] VITALS (10 sets, daily range): BP systolic 143–181; BP diastolic 44–105; BMI 24.3
[2024-12-10] MEDS: ZOSYN 50 IV ×3 (00:21→12:17)
[2024-12-10] MEDS: CARDIZEM 30 MG TUBE ×5 (00:21→21:30)
[2024-12-10] MEDS: MYLICON 80 MG TUBE ×2 (00:21→08:20)
[2024-12-10 00:24] LABS: Glucose - Point of Care 81 mg/dl (70-99)
[2024-12-10] MEDS: NOVOLOG FLEXPEN-LOW RESISTANCE SC ×4 (00:35→18:37)
--- NOTE | 2024-12-10 00:38 | PTCARENOTE ---
Pt Aox3, VSS, NSR on monitor, c/o generalized aches and pains. Intermittent nausea.
[2024-12-10 04:13] LABS: Hematocrit 31.8 % (37.0-47.0); Hemoglobin 10.6 g/dL (12.0-16.0); Mean Corp Hgb Conc. 33.3 g/dL (33.0-37.0); Mean Corpuscular Volume 92.4 fL (81.0-99.0); Nucleated Red Blood Cells % 0 %; Platelet Count 300 10^3/uL (130-400); Red Cell Dist. Width 14.4 % (11.5-14.5)
[2024-12-10 04:36] LABS: Blood Urea Nitrogen 19 mg/dl (7-17); Calcium 7.9 mg/dl (8.4-10.2); Carbon Dioxide 24 mmol/L (22-30); Chloride 104 mmol/L (98-107); Estimated Creatinine Clearance 54 ml/min; Glucose 83 mg/dl (70-99); Magnesium 2.1 mg/dl (1.6-2.3); Potassium 3.8 mmol/L (3.5-5.1); Sodium 137 mmol/L (135-145); eGFR > 60.00
[2024-12-10 05:27] LABS: Glucose - Point of Care 77 mg/dl (70-99)
[2024-12-10] MEDS: ARMOUR THYROID 30 MG TUBE (06:13)
--- NOTE | 2024-12-10 06:21 | PTCARENOTE ---
Pt had 500ml of green bilious output from NGT. Intermittent nausea, and coughing up a large amount of phlegm.
[2024-12-10] MEDS: DUONEB 3 ML INH ×3 (07:22→19:44)
[2024-12-10] MEDS: CATAPRES 0.1 MG TUBE ×3 (08:14→21:30)
[2024-12-10] MEDS: ZESTRIL 10 MG PO (08:14)
[2024-12-10] MEDS: OFIRMEV 100 IV ×3 (08:14→21:29)
--- NOTE | 2024-12-10 09:32 | W.PN.CRS1 ---
Today's Communication / Plan
-
NPO/NGT
Assessment/Plan
-
89 yo with stercoral colitis with perforation POD#4 Exploratory laparotomy, sigmoid resection with takedown splenic flexure, disimpaction, and end colostomy
Leukocytosis trending down
OR cx +Ecoli
H/H stable
Renal function stable
Afebrile, VSS
NGT with bilious outputs, await bowel recovery
Plan:
-Continue NPO. Maintain NGT until bowel function - will consider TPN in the next few days if remains NPO
-Trend WBC - trending down. Continue IV zosyn.
-OR pathology pending
-IVF as per primary team, currently off
-OOB with PT/OT
-Wound RN for colostomy teaching
-Analgesics with scheduled Ofirmev and prn Dilaudid
-Maintain midline incision dressing for now. Okay for wound RN to change with stoma change, syd to be left in place. Gauze and paper tape on top of wound with change.
-Lovenox for DVT prophylaxis. TEDs/SCDs in place.
Ok for transfer out of ICU from surgical standpoint
Subjective Data
Procedure
12/06/24- Exploratory laparotomy, sigmoid resection with takedown splenic flexure, disimpaction, and end colostomy
Subjective Data
Date of Service: December 10, 2024
Pt seen and examined at bedside with Dr. Wilkinson. In good spirits and listenting to lorena with her family. Note some abdominal soreness but not worsening, maybe a little better. Denies n/v.
Objective Data
-
Vital Signs
Temp Pulse Resp BP Pulse Ox
97.9 F 90 16 173/96 92
12/10/24 08:36 12/10/24 07:24 12/10/24 07:24 12/10/24 05:27 12/09/24 20:00
Intake & Output
12/09/24 12/10/24 12/11/24
06:59 06:59 06:59
Intake Total 2501.8 / 2581.8 460 / 460
Output Total 1400 / 1400 500 / 500
Balance 1101.8 / 1181.8 -40 / -40
Intake:
Oral fluids 0 / 0
IV fluids (Total) 400 / 400
Lr 1,000 ml @ 80 mls/hr IV . 1919 400 / 400
[id number] [facility] Rx#:[id number]
levo 1.8 / 1.8
IV piggybacks 400 / 400
Feeding tube flush amount 100 / 100
Amount instilled into GI Tube ( 80 / 80 60 / 60
Total)
[place] Sump 80 / 80 60 / 60
Output:
Gastrointestinal tube output ( 225 / 225 500 / 500
Total)
[place] Sump 225 / 225 500 / 500
Urine, [place] 1175 / 1175
Other:
Number of approximated MODERATE 1
amounts of urine
Number of approximated LARGE 1
amounts of urine
Lab Results
12/10/24 04:00
12/10/24 04:00
Physical Exam
-
General: No Acute Distress and AOx3
Abdomen: Soft, Non Distended, Tender (incisional) and Other (colostomy pink and viable but edematous, bowel sweat and no much evidence of flatus in appliance. ngt with bilious outputs)
Skin: Warm and Dry
Wound: Dressing in Place (Midline abdominal dressing intact with some shadowing)
--- NOTE | 2024-12-10 11:38 | PTCARENOTE ---
Rec'd pt at 0700. Pt AAOx3, follows commands. KOVACS with gen weakness, strength improved from yesterday. Monitor SR with PACs. NGT to LCWS. +hypo BS. Midline abdominal incision with aquacell intact, old drainage noted. Left colostomy with pink/moist
stoma, scant output. OOB to bathroom with assist of 1 and rolling walker, voiding yellow urine. Pt assisted to recliner chair. Family at bedside. Pt for transfer to tele.
--- NOTE | 2024-12-10 12:08 | W.PN.HOSP.TC ---
Today's Communication/Plan
-
Assessment / Plan
Assessment / Plan
NAD
Scleral Anicteric
MMM, NGT remains in place to suction
No JVD
Mechanical sounds
RRR, S1/S2
Soft, NT, ND, BS+, colostomy with a pink stoma, antibiotic
Warm, Dry
AAOx3
Calm
Acute hypoxemic respiratory
Extubated
Sigmoid colon perforation secondary to severe acute stercoral colitis
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
IV fluid, if not initiating enteral nutrition may need TPN, would appreciate colorectal surgery's input on the
Maintain NG tube until bowel function returns
Antibiotics with the use Zosyn for anaerobic coverage
-Though blood cultures negative thus far, wound culture growing E. coli that is pansensitive
-- Will de-escalate Zosyn to Unasyn
Leukocytosis improving with also cough though
-Sputum culture rare gram-positive cocci
-Blood culture no growth to date
-Wound culture E. coli pansensitive
De-escalate Zosyn to Unasyn to still have anaerobic coverage
SVT
Continue Dilt
Hypertension - uncontrolled likley developed rebound from clonidine being on hold
ICU resumed clonidine via tube
Some of this incontrolled bp likely related to pain. Would conitnue to follow for now and hold off on being aggressive to control
Hypothyroidism
Continue replacement
Anticipated Discharge: > 48 hours
Subjective/Interval History
-
Date of Service: December 10, 2024
Seen and examined. Urinating well. Still without flatus or moving bowels
Objective Data
-
Labs:
Laboratory Results
12/10/24
04:00
WBC 16.2 H
Hgb 10.6 L
Hct 31.8 L
Plt Count 300
Sodium 137
Potassium 3.8
Chloride 104
Carbon Dioxide 24
BUN 19 H
Creatinine 0.6
Glucose 83
Calcium 7.9 L
Vital Signs:
Vital Signs
Temp Pulse Resp BP Pulse Ox
97.9 F 83 14 150/50 92
12/10/24 08:36 12/10/24 09:25 12/10/24 09:25 12/10/24 09:25 12/09/24 20:00
I&O
12/09/24 12/10/24 12/11/24
06:59 06:59 06:59
Intake Total 2501.8 / 2581.8 460 / 460
Output Total 1400 / 1400 500 / 500
Balance 1101.8 / 1181.8 -40 / -40
[2024-12-10 12:32] LABS: Glucose - Point of Care 82 mg/dl (70-99)
[2024-12-10] MEDS: UNASYN IV ×2 (13:35→20:52)
--- NOTE | 2024-12-10 13:56 | CM ---
structural engineering project manager met with patient and son, Don at bedside. Recommendation is for skilled placement when stable, patient's son has list of Medicare.gov facilities and ratings and he has selected [facility] and [facility], referrals sent to both
facilities, son Don to tour both facilities tomorrow and then make a final choice, no Auth required.
Plan; Skilled placement when stable, referrals sent to [facility] and [facility].
[2024-12-10] MEDS: NSS 1000 IV (15:54)
[2024-12-10] MEDS: LOVENOX 40 MG SC (17:10)
[2024-12-10 18:31] LABS: Glucose - Point of Care 78 mg/dl (70-99)
[2024-12-11] VITALS (8 sets, daily range): BP systolic 169–183; BP diastolic 71–95; BMI 23.9
[2024-12-11 00:25] LABS: Glucose - Point of Care 73 mg/dl (70-99)
[2024-12-11] MEDS: NOVOLOG FLEXPEN-LOW RESISTANCE SC ×4 (00:50→18:44)
[2024-12-11] MEDS: ZOFRAN 4 MG IV ×3 (00:59→22:18)
[2024-12-11] MEDS: OFIRMEV 100 IV ×4 (01:21→21:13)
[2024-12-11] MEDS: UNASYN IV ×4 (02:02→20:15)
[2024-12-11] MEDS: ARMOUR THYROID 30 MG TUBE (05:52)
[2024-12-11 06:12] LABS: Glucose - Point of Care 69 mg/dl (70-99)
[2024-12-11 06:31] LABS: Glucose - Point of Care 79 mg/dl (70-99)
[2024-12-11] MEDS: DUONEB 3 ML INH ×2 (07:26→13:12)
[2024-12-11 07:46] LABS: Hematocrit 33.3 % (37.0-47.0); Hemoglobin 11.6 g/dL (12.0-16.0); Mean Corp Hgb Conc. 34.8 g/dL (33.0-37.0); Mean Corpuscular Volume 86.9 fL (81.0-99.0); Platelet Count 372 10^3/uL (130-400); Red Cell Dist. Width 14.2 % (11.5-14.5)
[2024-12-11 08:11] LABS: Blood Urea Nitrogen 15 mg/dl (7-17); Calcium 8.3 mg/dl (8.4-10.2); Carbon Dioxide 25 mmol/L (22-30); Chloride 103 mmol/L (98-107); Estimated Creatinine Clearance 54 ml/min; Glucose 63 mg/dl (70-99); Potassium 3.3 mmol/L (3.5-5.1); Sodium 140 mmol/L (135-145); eGFR > 60.00
[2024-12-11] MEDS: ZESTRIL 10 MG PO (08:13)
[2024-12-11] MEDS: CATAPRES 0.1 MG TUBE ×3 (08:14→22:09)
[2024-12-11] MEDS: CARDIZEM 30 MG TUBE ×4 (08:14→22:08)
[2024-12-11 08:25] LABS: Glucose - Point of Care 73 mg/dl (70-99)
[2024-12-11] MEDS: D5/0.9% SODIUM CHLORIDE 1000 IV (09:37)
[2024-12-11] MEDS: KCL 270 MEQ IV (09:37)
--- NOTE | 2024-12-11 09:43 | CM ---
Patient seen at bedside with dtr Ayla
NPO/NGT
stercoral colitis with perforation POD#4 Exploratory laparotomy, sigmoid resection with takedown splenic flexure, disimpaction, and end colostomy
PT rec SNF
referrals in [facility] & [facility]-per dtr her brother Don is touring facilities
no pre-auth needed
PLAN: SNF, pending bed availability when stable
--- NOTE | 2024-12-11 10:44 | W.PN.CRS1 ---
Today's Communication / Plan
-
Continue current measures.
Assessment/Plan
-
POD 5.
1. WBC down to 12. Continue antibiotics.
2. NGT with 850 cc/24 hrs dark output and awaiting stoma function. Continue NGT/IVFs. Hold on TPN option for now.
3. OOB/PT/OT.
Subjective Data
Procedure
12/06/24- Exploratory laparotomy, sigmoid resection with takedown splenic flexure, disimpaction, and end colostomy
Subjective Data
Date of Service: December 11, 2024
No complaints.
Objective Data
-
Vital Signs
Temp Pulse Resp BP Pulse Ox
98.1 F 67 18 183/82 98
12/11/24 07:35 12/11/24 08:13 12/11/24 07:35 12/11/24 08:13 12/11/24 07:35
Intake & Output
12/10/24 12/11/24 12/12/24
06:59 06:59 06:59
Intake Total 460 / 460 1240 / 1240
Output Total 500 / 500 850 / 850
Balance -40 / -40 390 / 390
Intake:
IV fluids (Total) 400 / 400 940 / 940
Lr 1,000 ml @ 80 mls/hr IV . 400 / 400
[id number] [facility] Rx#:[id number]
IV piggybacks 300 / 300
Amount instilled into GI Tube ( 60 / 60
Total)
[place] Sump 60 / 60
Output:
Gastrointestinal tube output ( 500 / 500 850 / 850
Total)
[place] Sump 500 / 500 850 / 850
Other:
Number of approximated SMALL 1
amounts of urine
Number of approximated MODERATE 1 2
amounts of urine
Number of approximated LARGE 1
amounts of urine
Lab Results
12/11/24 06:13
12/11/24 06:13
Physical Exam
-
General: No Acute Distress
Chest: Clear
Cardiovascular: Regular Rate & Rhythm
Abdomen: Distended (mild), Tender (mild) and Other (stoma viable without output)
Incision: No Skin Erythema
--- NOTE | 2024-12-11 11:56 | W.PN.HOSP.TC ---
Today's Communication/Plan
-
prn hydralazine
follow CRS recs
continue IVF/IV abx
Assessment / Plan
Assessment / Plan
Assessment:
Acute hypoxemic respiratory failure (VDRF)
- for procedure; was extubated
Sigmoid colon perforation secondary to severe acute stercoral colitis from constipation
- s/p sigmoidectomy with end colostomy on 12/06/2024
- NPO/IVF. Possible TPN pending ROBF. continue NG tube
- prn pain control + anti-emetics
- continue Unasyn, WBC improving
- CRS following
Leukocytosis with sepsis due to transient bacteremia from perforated viscus
- continue Unasyn, WBC improving
Hypocalcemia resolved
Chronic hyponatremia
History of Lyme disease with history of adrenal insufficiency and chronic fatigue
hx of SVT
- continue Dilt
Essential HTN with urgency
- on Cardizem/Clonidine TID
- prn Hydralazine with parameters; reviewed with family
- BP elevation also in setting of pain, IVF, anxiety
Hypothyroidism - on replacement
Hypokalemia - replete prn
DVT ppx: Lovenox
Code: DNR/DNI
Anticipated Discharge: > 48 hours
Subjective/Interval History
-
Date of Service: December 11, 2024
no new complaints
BP elevated; patient/daughter relay many intolerances/allergies to various BP agents, but willing to trial IV hydralazine
Objective Data
-
Labs:
Laboratory Results
12/11/24
06:13
WBC 12.4 H
Hgb 11.6 L
Hct 33.3 L
Plt Count 372 D
Sodium 140
Potassium 3.3 L
Chloride 103
Carbon Dioxide 25
BUN 15
Creatinine 0.5 L
Glucose 63 L
Calcium 8.3 L
Vital Signs:
Vital Signs
Temp Pulse Resp BP Pulse Ox
98.4 F 82 16 181/95 98
12/11/24 11:10 12/11/24 11:10 12/11/24 11:10 12/11/24 11:10 12/11/24 11:10
I&O
12/10/24 12/11/24 12/12/24
06:59 06:59 06:59
Intake Total 460 / 460 1240 / 1240
Output Total 500 / 500 850 / 850 150 / 150
Balance -40 / -40 390 / 390 -150 / -150
Physical Exam
-
General: No Apparent Distress
HEENT: Normocephalic, Atraumatic and Other (+ NG tube)
Respiratory: Negative Wheezes
Cardiac: Regular Rhythm and S1/S2
GI: Soft and Nontender
Genito-urinary: No Costovertebral Tender
Neuro: AO x 3
Psych: Calm
Data Reviewed
-
Total Time Spent with Patient (in minutes): 42
Labs: Labs Reviewed by me
[2024-12-11] MEDS: APRESOLINE 5 MG IV (12:18)
--- NOTE | 2024-12-11 12:25 | WOUNDNOTE ---
ABDOMEN/FLANK (L SIDE)
--- NOTE | 2024-12-11 12:26 | WOUNDNOTE ---
[facility] RN note: Patient s/p ostomy surgery 12/06/24 End colostomy. Patient for rehab/SNF when discharged. Daughter Ayla present for ostomy teaching for when she goes home after rehab.
See H&P for complete history.
PMH:
Ostomy location and type: Colostomy.
Instructed patient and daughter Ayla ostomy pouch emptying and changing appliance using [place] wafer # [id number]
[employer] pouch # [id number].
Ostomy supplies and colostomy teaching folder at bedside. Patient and daughter approved ordering a [place] ostomy secure starter kit.
Next appliance change due or Wednesday.
[2024-12-11 12:27] LABS: Glucose - Point of Care 99 mg/dl (70-99)
--- NOTE | 2024-12-11 12:45 | PTCARENOTE ---
Pt BP 181/95 HR 91[address] Pt asymptomatic. Dr. Paul notified. Hydralazine PRN ordered. Care ongoing.
--- NOTE | 2024-12-11 17:28 | WOUNDNOTE ---
[facility] RN note: Faxed [place] ostomy secure starter kit request daughter signed to [employer].
[2024-12-11] MEDS: LOVENOX 40 MG SC (18:06)
[2024-12-11 18:42] LABS: Glucose - Point of Care 111 mg/dl (70-99)
[2024-12-12] VITALS (8 sets, daily range): BP systolic 143–193; BP diastolic 66–91; PULSE 86–91; O2SAT 98; BMI 23.7
[2024-12-12 00:24] LABS: Glucose - Point of Care 109 mg/dl (70-99)
[2024-12-12] MEDS: NOVOLOG FLEXPEN-LOW RESISTANCE SC ×4 (00:24→17:30)
[2024-12-12] MEDS: UNASYN IV ×4 (02:11→20:23)
[2024-12-12] MEDS: OFIRMEV 100 IV (02:47)
[2024-12-12 05:38] LABS: Glucose - Point of Care 120 mg/dl (70-99)
[2024-12-12] MEDS: ARMOUR THYROID 30 MG TUBE (06:21)
[2024-12-12] MEDS: D5/0.9% SODIUM CHLORIDE 1000 IV (06:21)
[2024-12-12 06:33] LABS: Hematocrit 31.6 % (37.0-47.0); Hemoglobin 10.8 g/dL (12.0-16.0); Mean Corp Hgb Conc. 34.2 g/dL (33.0-37.0); Mean Corpuscular Volume 88.0 fL (81.0-99.0); Platelet Count 367 10^3/uL (130-400); Red Cell Dist. Width 14.4 % (11.5-14.5)
[2024-12-12 07:16] LABS: Blood Urea Nitrogen 9 mg/dl (7-17); Calcium 8.2 mg/dl (8.4-10.2); Carbon Dioxide 25 mmol/L (22-30); Chloride 106 mmol/L (98-107); Estimated Creatinine Clearance 54 ml/min; Glucose 116 mg/dl (70-99); Potassium 3.1 mmol/L (3.5-5.1); Sodium 141 mmol/L (135-145); eGFR > 60.00
[2024-12-12] MEDS: CATAPRES 0.1 MG TUBE ×2 (07:42→15:45)
[2024-12-12] MEDS: CARDIZEM 30 MG TUBE ×3 (07:42→17:24)
[2024-12-12] MEDS: ZESTRIL 10 MG PO (07:44)
[2024-12-12] MEDS: KCL 270 MEQ IV (08:50)
--- NOTE | 2024-12-12 09:00 | PTCARENOTE ---
NG removed by surgery- pt tolerated well. denies pain no N/V/D. Working with PT/OT Attending aware pt refusing PRN Hydralazine, plan to recheck BP mid day- switch back to PO and assess
--- NOTE | 2024-12-12 09:18 | PN.CDI ---
CDI
- -
CDI:
Physician Documentation Request
Admit Date: 12/06/24 18:43
Dear Doctor/PAYROLL SERVICES ANALYST,
Please review the following and provide your response in the progress notes.
Clinical Indicators:
Pt admitted with stercoral colitis/Sigmoid colon perforation -Pt on IV Zosyn
Documented per operative report, ' Free intraabdominal air with a moderate amount of murky fluid in the pelvis that was cultured. ...there was some murky fluid in the pelvis There was a large perforation anteriorly in the mid sigmoid region.Some
fluid was cultured. It was aspirated until it was clear....'
Progress note 12/10, ' OR cx +Ecoli...-Trend WBC - trending down. Continue IV zosyn....'
Based on the above, could you clarify in the progress notes, the appropriate diagnosis, if significant, that supports the above abnormalities and additional evaluation, monitoring and/or treatment rendered:
Generalized acute peritonitis
Spontaneous Bacterial Peritonitis
Localized peritonitis
Other ( please specify)
Use of terms such as suspected, likely, concern for, or probable (associated with a specific diagnosis that is being evaluated, monitored, or treated as if it exists) are acceptable and can be coded in the inpatient setting, when documented at the
time of discharge.
Thank you,
Inessa Lerner RN
CDI Specialist
[place] [facility]
Please use your independent medical judgment in providing your response.
--- NOTE | 2024-12-12 09:22 | W.PN.CRS1 ---
Today's Communication / Plan
-
ngt removed
clears with ensure
Assessment/Plan
-
89 yo with stercoral colitis with perforation POD#4 Exploratory laparotomy, sigmoid resection with takedown splenic flexure, disimpaction, and end colostomy
WBC: 12.6 (12.4)
Hgb 10.8
NGT: 750ml
vitals normal
Plan:
-NGT pulled by Dr. Johnson
-Start on clears with Ensure
-Trend WBC - trending down. Continue IV zosyn.
-OR pathology pending
-IVF as per primary team, currently off
-OOB with PT/OT
-Wound RN for colostomy teaching
-Analgesics with scheduled Ofirmev and prn Dilaudid
-Maintain midline incision dressing for now. Okay for wound RN to change with stoma change, syd to be left in place. Gauze and paper tape on top of wound with change.
-Lovenox for DVT prophylaxis. TEDs/SCDs in place.
Subjective Data
Procedure
12/06/24- Exploratory laparotomy, sigmoid resection with takedown splenic flexure, disimpaction, and end colostomy
Subjective Data
Date of Service: December 12, 2024
Patient states she feels 'sore'. She has flatus and stool in her bag. Denies vomiting. Had some nausea with hydralazine which she says is normal for her. Otherwise no complaints.
Objective Data
-
Vital Signs
Temp Pulse Resp BP Pulse Ox
98.2 F 91 18 193/91 96
12/12/24 07:25 12/12/24 07:25 12/12/24 07:25 12/12/24 07:25 12/12/24 07:25
Intake & Output
10/27/25 10/28/25 10/29/25
06:59 06:59 06:59
Intake Total 1240 / 1240 1500 / 1500
Output Total 850 / 850 750 / 750
Balance 390 / 390 750 / 750
Intake:
IV fluids (Total) 940 / 940 600 / 600
IV piggybacks 300 / 300 720 / 720
Amount instilled into GI Tube ( 180 / 180
Total)
[place] Sump 180 / 180
Output:
Gastrointestinal tube output ( 850 / 850 750 / 750
Total)
[place] Sump 850 / 850 750 / 750
Other:
Number of approximated SMALL 1
amounts of urine
Number of approximated MODERATE 2 2
amounts of urine
Lab Results
12/12/24 05:46
12/12/24 05:46
Physical Exam
-
General: No Acute Distress and AOx3
Abdomen: Soft, Non Distended, Non Tender and Other (colostomy with output, red and warm)
Skin: Warm and Dry
--- NOTE | 2024-12-12 12:06 | CM ---
Addendum entered by Jaida Kilgore 12/12/24 12:55:
CM spoke with [facility] admissions- pt accepted for admission on dc
Ostomy supplies ordered and onsite, no need to send add'l supplies on dc
Pt will require COVID test within 24 hours of dc
Discharge Disposition- [facility] SNF
Phone- [phone] Fax- [phone]
Original Note:
CM reviewed chart and pt with nursing
POD#6 [place] with new ostomy
NGT has been removed and clears ordered
Bedside meeting with pt and jinny/Ayla
Pt noted [facility] is SNF preference
updated clinicals sent to both [facility] and [facility]
Referral to [facility] pending and [facility] has accepted pending bed availability
VM left for [facility] admissions to discuss admission- awaiting call back
Discharge Disposition- SNF with new ostomy
--- NOTE | 2024-12-12 13:19 | W.PN.HOSP.TC ---
Today's Communication/Plan
-
oral BP meds
diet + supplements per CRS
continue Abx
SNF planning
Assessment / Plan
Assessment / Plan
Assessment:
Acute hypoxemic respiratory failure (VDRF)
- intubated for surgery; was extubated 24 hours later
Sigmoid colon perforation secondary to severe acute stercoral colitis from constipation
- s/p sigmoidectomy with end colostomy on 12/06/2024
- s/p NGT
- clears; cap IVF
- prn pain control + anti-emetics
- continue Unasyn, WBC improving
- CRS following
Leukocytosis with sepsis due to transient bacteremia from perforated viscus
- continue Unasyn, WBC improving
Hypocalcemia resolved
Chronic hyponatremia
History of Lyme disease with history of adrenal insufficiency and chronic fatigue
hx of SVT
- continue Dilt
Essential HTN with urgency
- continue oral Cardizem/Clonidine TID/Lisinopril
- BP elevation probably in setting of pain, IVF, anxiety
Hypothyroidism - on replacement
Hypokalemia - replete prn
DVT ppx: Lovenox
Code: DNR/DNI
Anticipated Discharge: > 48 hours
Subjective/Interval History
-
Date of Service: December 12, 2024
NG tube removed; patient placed on clears
denies any new symptoms
Objective Data
-
Labs:
Laboratory Results
12/12/24
05:46
WBC 12.6 H
Hgb 10.8 L
Hct 31.6 L
Plt Count 367
Sodium 141
Potassium 3.1 L
Chloride 106
Carbon Dioxide 25
BUN 9
Creatinine 0.5 L
Glucose 116 H
Calcium 8.2 L
Vital Signs:
Vital Signs
Temp Pulse Resp BP Pulse Ox
98.8 F 88 18 177/88 97
12/12/24 11:15 12/12/24 11:15 12/12/24 11:15 12/12/24 12:17 12/12/24 11:15
I&O
12/11/24 12/12/24 12/13/24
06:59 06:59 06:59
Intake Total 1240 / 1240 1500 / 1500
Output Total 850 / 850 750 / 750
Balance 390 / 390 750 / 750
Physical Exam
-
General: No Apparent Distress
HEENT: Normocephalic and Atraumatic
Respiratory: Negative Wheezes
Cardiac: Regular Rhythm and S1/S2
GI: Distended (mildly) and Ostomy
Neuro: AO x 3
Psych: Calm
Data Reviewed
-
Total Time Spent with Patient (in minutes): 42
Labs: Labs Reviewed by me
[2024-12-12] MEDS: LOVENOX 40 MG SC (17:29)
[2024-12-12 18:01] LABS: Glucose - Point of Care 124 mg/dl (70-99)
[2024-12-12] MEDS: CARDIZEM 30 MG PO (22:03)
[2024-12-12] MEDS: CATAPRES 0.1 MG PO (22:04)
[2024-12-13] MEDS: NOVOLOG FLEXPEN-LOW RESISTANCE SC ×3 (00:53→12:17)
[2024-12-13] MEDS: UNASYN IV ×4 (01:59→20:27)
[2024-12-13 03:10] VITALS: BP 146/66
[2024-12-13] MEDS: MYLICON 80 MG PO (03:33)
[2024-12-13] MEDS: ARMOUR THYROID 30 MG PO (05:50)
[2024-12-13 06:00] VITALS: BMI 23.1
[2024-12-13 06:45] LABS: Hematocrit 34.1 % (37.0-47.0); Hemoglobin 11.2 g/dL (12.0-16.0); Mean Corp Hgb Conc. 32.8 g/dL (33.0-37.0); Mean Corpuscular Volume 91.7 fL (81.0-99.0); Platelet Count 415 10^3/uL (130-400); Red Cell Dist. Width 15.1 % (11.5-14.5)
[2024-12-13 07:00] VITALS: BP 169/74
[2024-12-13 07:07] LABS: Blood Urea Nitrogen 17 mg/dl (7-17); Calcium 8.4 mg/dl (8.4-10.2); Carbon Dioxide 27 mmol/L (22-30); Chloride 103 mmol/L (98-107); Estimated Creatinine Clearance 54 ml/min; Glucose 106 mg/dl (70-99); Potassium 3.4 mmol/L (3.5-5.1); Sodium 135 mmol/L (135-145); eGFR > 60.00
[2024-12-13] MEDS: CATAPRES 0.1 MG PO ×3 (08:11→21:57)
[2024-12-13] MEDS: ZESTRIL 10 MG PO (08:11)
[2024-12-13] MEDS: CARDIZEM 30 MG PO ×4 (08:11→21:56)
[2024-12-13] MEDS: KCL 270 MEQ IV (09:09)
--- NOTE | 2024-12-13 09:42 | W.PN.HOSP.TC ---
Today's Communication/Plan
-
trend wbc
on clears
oob/pt
monitor BP-cont extensive anti-htn medication regimen. adjust prn
CRS recs
Assessment / Plan
Assessment / Plan
Assessment:
Acute hypoxemic respiratory failure (VDRF)
- intubated for surgery; was extubated 24 hours later
Sigmoid colon perforation secondary to severe acute stercoral colitis from constipation
- s/p sigmoidectomy with end colostomy on 12/06/2024
- s/p NGT
- clears; cap IVF. diet per surgery.
- prn pain control + anti-emetics
- continue Unasyn, WBC bumped but seems to be fluctuating. Remains afebrile.
- CRS following
Leukocytosis with sepsis due to transient bacteremia from perforated viscus
- continue Unasyn, WBC bumped but seems to be fluctuating. Remains afebrile.
Hypocalcemia resolved
Chronic hyponatremia
History of Lyme disease with history of adrenal insufficiency and chronic fatigue
hx of SVT
- continue Dilt
Essential HTN with urgency
- continue oral Cardizem/Clonidine TID/Lisinopril
- BP elevation probably in setting of pain, IVF, anxiety
- If needed can increase lisinopril if needed
Hypothyroidism - on replacement
Hypokalemia - replete prn
DVT ppx: Lovenox
Code: DNR/DNI
Anticipated Discharge: > 48 hours
Subjective/Interval History
-
Date of Service: December 13, 2024
states of bloating/increase flatulence in ostomy bag
tolerating liquids
Objective Data
-
Labs:
Laboratory Results
12/13/24
06:18
WBC 16.7 H
Hgb 11.2 L
Hct 34.1 L
Plt Count 415 H
Sodium 135
Potassium 3.4 L
Chloride 103
Carbon Dioxide 27
BUN 17
Creatinine 0.5 L
Glucose 106 H
Calcium 8.4
Vital Signs:
Vital Signs
Temp Pulse Resp BP Pulse Ox
98.7 F 86 16 169/74 98
12/13/24 07:00 12/13/24 08:11 12/13/24 07:00 12/13/24 08:11 12/13/24 07:00
I&O
12/12/24 12/13/24 12/14/24
06:59 06:59 06:59
Intake Total 1500 / 1500 1150 / 1150
Output Total 750 / 750 700 / 700
Balance 750 / 750 450 / 450
Physical Exam
-
General: No Apparent Distress
HEENT: Normocephalic, Atraumatic, Moist Mucous Membranes and No Ptosis
Respiratory: Clear to Auscultation and Non Labored Respirations; Negative Wheezes
Cardiac: Regular Rhythm and S1/S2
GI: Distended (mildly), Ostomy and Other (midline dressing noted )
Neuro: Awake and AO x 3
Psych: Calm
Data Reviewed
-
Total Time Spent with Patient (in minutes): 55
--- NOTE | 2024-12-13 09:45 | W.PN.CRS1 ---
Today's Communication / Plan
-
regular diet
monitor wbc
wound care
Assessment/Plan
-
89 yo with stercoral colitis with perforation POD#4 Exploratory laparotomy, sigmoid resection with takedown splenic flexure, disimpaction, and end colostomy
WBC: 16.7 (12.6)
Hgb 11.2 (10.8)
vitals normal
Plan:
-Tolerating clears. Advance to regular diet.
-Trend WBC - increased today. Suspect wound. Cultures grew e.coli from OR. Continue IV zosyn.
-OR pathology pending
-OOB with PT/OT
-Wound RN for colostomy teaching
-Analgesics with scheduled Ofirmev and prn Dilaudid
-Midline incision changed by Dr. Ceja today. [place] were removed. Q-tip was probed the middle of wound near umbilicus. Dressing changed.
-Lovenox for DVT prophylaxis. TEDs/SCDs in place.
Subjective Data
Procedure
12/06/24- Exploratory laparotomy, sigmoid resection with takedown splenic flexure, disimpaction, and end colostomy
Subjective Data
Date of Service: December 13, 2024
Patient states she feels well today. She denies nausea or vomiting. She has flatus in her bag. Her pain is controlled. She was out of bed yesterday with physical therapy.
Objective Data
-
Vital Signs
Temp Pulse Resp BP Pulse Ox
98.7 F 86 16 169/74 98
12/13/24 07:00 12/13/24 08:11 12/13/24 07:00 12/13/24 08:11 12/13/24 07:00
Intake & Output
12/12/24 12/13/24 12/14/24
06:59 06:59 06:59
Intake Total 1500 / 1500 1150 / 1150
Output Total 750 / 750 700 / 700
Balance 750 / 750 450 / 450
Intake:
Oral fluids 360 / 360
IV fluids (Total) 600 / 600 300 / 300
IV piggybacks 720 / 720 490 / 490
Amount instilled into GI Tube ( 180 / 180
Total)
[place] Sump 180 / 180
Output:
Gastrointestinal tube output ( 750 / 750 700 / 700
Total)
[place] Sump 750 / 750 700 / 700
Other:
Number of approximated MODERATE 2 1
amounts of urine
Lab Results
12/13/24 06:18
12/13/24 06:18
Physical Exam
-
General: No Acute Distress and AOx3
Abdomen: Soft, Non Distended, Non Tender and Other (Colostomy warm and pink with some stool and flatus in bag)
Skin: Warm and Dry
Incision: Clear, Dry, Intact
--- NOTE | 2024-12-13 11:15 | CM ---
CM reviewed chart- ADC>48 hours
Diet advancing
Update to [facility] admissions/Izabela
Pt remains clinically accepted pending bed availability
Ostomy supplies ordered and onsite, no need to send add'l supplies on dc
Pt will require COVID test within 24 hours of dc
Discharge Disposition- [facility] SNF pending bed availability
Phone- [phone] Fax- [phone]
[2024-12-13 11:20] VITALS: BP 135/63
[2024-12-13 15:46] VITALS: BP 147/67
[2024-12-13 17:33] VITALS: BP 143/66; PULSE 92; O2SAT 98
[2024-12-13] MEDS: LOVENOX 40 MG SC (18:34)
[2024-12-13] MEDS: ZOFRAN 4 MG IV (21:05)
--- NOTE | 2024-12-13 21:30 | PTCARENOTE ---
Patient stated she is 'feeling nauseous'. IV Zofran administered. Relief noted. Patient comfortable in bed. Colostomy putting out flatulence.
[2024-12-13 23:18] VITALS: BP 167/68
[2024-12-14 00:08] VITALS: BP 132/59
[2024-12-14] MEDS: UNASYN IV ×4 (01:19→20:54)
[2024-12-14] MEDS: ARMOUR THYROID 30 MG PO (05:31)
[2024-12-14 05:47] VITALS: BMI 24.1
[2024-12-14 08:00] VITALS: BP 147/68
[2024-12-14] MEDS: CATAPRES 0.1 MG PO ×3 (08:06→20:57)
[2024-12-14] MEDS: CARDIZEM 30 MG PO ×4 (08:07→20:58)
[2024-12-14] MEDS: ZESTRIL 10 MG PO (08:07)
[2024-12-14 08:26] LABS: Blood Urea Nitrogen 16 mg/dl (7-17); Calcium 8.0 mg/dl (8.4-10.2); Carbon Dioxide 26 mmol/L (22-30); Chloride 102 mmol/L (98-107); Estimated Creatinine Clearance 54 ml/min; Glucose 99 mg/dl (70-99); Potassium 3.6 mmol/L (3.5-5.1); Sodium 132 mmol/L (135-145); eGFR > 60.00
[2024-12-14 08:29] LABS: Hematocrit 26.7 % (37.0-47.0); Hemoglobin 8.7 g/dL (12.0-16.0); Mean Corp Hgb Conc. 32.6 g/dL (33.0-37.0); Mean Corpuscular Volume 92.7 fL (81.0-99.0); Platelet Count 359 10^3/uL (130-400); Red Cell Dist. Width 15.3 % (11.5-14.5)
--- NOTE | 2024-12-14 10:38 | W.PN.HOSP.TC ---
Today's Communication/Plan
-
repeat h/h
IV abx ?14d course
monitor diet tolerance
Assessment / Plan
Assessment / Plan
Assessment:
Acute hypoxemic respiratory failure (VDRF)
- intubated for surgery; was extubated 24 hours later
Sigmoid colon perforation secondary to severe acute stercoral colitis from constipation
- s/p sigmoidectomy with end colostomy on 12/06/2024
- s/p NGT
- regular diet. monitor for tolerance
- prn pain control + anti-emetics
- continue Unasyn, WBC downtrended
- CRS following
Leukocytosis with sepsis due to transient bacteremia from perforated viscus
- continue Unasyn, WBC downtrended
Mild anemia
-drop in hgb noted. but no luminal bleeding. could be dilutional component from IVF.
-check anemia panel.
Hypocalcemia resolved
Chronic hyponatremia
History of Lyme disease with history of adrenal insufficiency and chronic fatigue
hx of SVT
- continue Dilt
Essential HTN with urgency
- continue oral Cardizem/Clonidine TID/Lisinopril
- BP improving
- If needed can increase lisinopril if needed
Hypothyroidism - on replacement
Hypokalemia - replete prn
Mild hyponatremia
-monitor for now
DVT ppx: Lovenox
Code: DNR/DNI
d/w with daughter at bedside in details
Anticipated Discharge: Within 24 hours
Subjective/Interval History
-
Date of Service: December 14, 2024
tolerating diet
no blood in ostomy
no blood in urine
Objective Data
-
Labs:
Laboratory Results
12/14/24 12/14/24
06:36 12:00
WBC 11.4 H
Hgb 8.7 L D Pending
Hct 26.7 L Pending
Plt Count 359
Sodium 132 L
Potassium 3.6
Chloride 102
Carbon Dioxide 26
BUN 16
Creatinine 0.4 L
Glucose 99
Calcium 8.0 L
Vital Signs:
Vital Signs
Temp Pulse Resp BP Pulse Ox
98.1 F 87 18 147/68 98
12/14/24 08:00 12/14/24 08:06 12/14/24 08:00 12/14/24 08:06 12/14/24 08:00
I&O
12/13/24 12/14/24 12/15/24
06:59 06:59 06:59
Intake Total 1150 / 1150 1240 / 1240
Output Total 700 / 700
Balance 450 / 450 1240 / 1240
Physical Exam
-
General: No Apparent Distress
HEENT: Normocephalic, Atraumatic, Moist Mucous Membranes and No Ptosis
Respiratory: Clear to Auscultation and Non Labored Respirations; Negative Wheezes
Cardiac: Regular Rhythm and S1/S2
GI: Distended (mildly) and Ostomy
Neuro: Awake, AO x 3 and No Motor Deficits
Psych: Calm
Data Reviewed
-
Total Time Spent with Patient (in minutes): 55
--- NOTE | 2024-12-14 11:11 | W.PN.CRS1 ---
Today's Communication / Plan
-
rpt hemoglobin
doing well overall
Assessment/Plan
-
89 yo with stercoral colitis with perforation POD#8 Exploratory laparotomy, sigmoid resection with takedown splenic flexure, disimpaction, and end colostomy
WBC: 11.1(16.7, 12.6)
Hgb 8.7 (11.2, 10.8)
vitals normal
Plan:
-Continue regular diet with ensure
-Hgb dropped to 8.7, likely dilutional. Will repeat later today.
-WBC trending down. Suspect wound. Cultures grew e.coli from OR. Continue IV zosyn.
-OR pathology pending
-OOB with PT/OT
-Wound RN for colostomy teaching
-Analgesics with scheduled Ofirmev and prn Dilaudid
-Midline dressing changes daily.
-Lovenox for DVT prophylaxis. TEDs/SCDs in place.
-Dipso: [facility]
Subjective Data
Procedure
12/06/24- Exploratory laparotomy, sigmoid resection with takedown splenic flexure, disimpaction, and end colostomy
Subjective Data
Date of Service: December 14, 2024
Patient states she is feeling well. She denies nausea or vomiting. Her pain is controlled. She is tolerating a diet. She overall feels well.
Objective Data
-
Vital Signs
Temp Pulse Resp BP Pulse Ox
98.1 F 87 18 147/68 98
12/14/24 08:00 12/14/24 08:06 12/14/24 08:00 12/14/24 08:06 12/14/24 08:00
Intake & Output
12/13/24 12/14/24 12/15/24
06:59 06:59 06:59
Intake Total 1150 / 1150 1240 / 1240
Output Total 700 / 700
Balance 450 / 450 1240 / 1240
Intake:
Oral fluids 360 / 360 480 / 480
IV fluids (Total) 300 / 300 40 / 40
IV piggybacks 490 / 490 720 / 720
Output:
Gastrointestinal tube output (
Total)
[place] Sump /
Other:
Number of approximated MODERATE 1 2
amounts of urine
Lab Results
12/14/24 06:36
Physical Exam
-
General: No Acute Distress and AOx3
Abdomen: Soft, Non Distended, Non Tender and Other (colostomy warm and pink with flatus and scant amount of stool in bag)
Skin: Warm and Dry
Incision: Clear, Dry, Intact
[2024-12-14 11:28] LABS: Iron 21 ug/dl (37-170)
[2024-12-14 11:37] LABS: Total Iron Binding Capacity 180 ug/dl (265-497)
--- NOTE | 2024-12-14 12:23 | WOUNDNOTE ---
WOC RN note: Patient sitting in chair with air chair cushion. Stoma pink and swollen about 2 inches in diameter. Peristomal skin intact. Reinstructed daughter Ayla and another daughter how to empty and change colostomy appliance using [place]
wafer # [id number] and [place] pouch # [id number]. Ayla assisted with emptying and changing appliance. Patient observed. Skin on patient's heels intact. Ostomy supplies at bedside. t/c [facility] and ordered a few more ostomy appliances. Next appliance change due
Wednesday or Wednesday. Plan is SNF rehab when discharged then home with VN. Will follow as needed.
--- NOTE | 2024-12-14 12:25 | WOUNDNOTE ---
WO RN note: Patient sitting in chair with air chair cushion. Stoma pink and swollen about 2 inches in diameter. Small amount of liquid brown stool in pouch. Peristomal skin intact. Reinstructed daughter Ayla and daughter Brie how to empty and
change colostomy appliance using [place] wafer # [id number] and [place] pouch # [id number]. Ayla assisted with emptying and changing appliance. Patient observed. Skin on patient's heels intact. More ostomy supplies left at bedside. Next appliance change
due Wednesday or Wednesday. Plan is SNF rehab when discharged then home with VN. Will follow as needed.
[2024-12-14] MEDS: FERRLECIT 110 MG IV (13:31)
[2024-12-14 13:54] LABS: Hematocrit 27.1 % (37.0-47.0); Hemoglobin 8.7 g/dL (12.0-16.0)
[2024-12-14] MEDS: ZOFRAN 4 MG IV (14:29)
[2024-12-14 15:29] LABS: Ferritin 157.0 ng/ml (11.1-264.0)
[2024-12-14 16:00] VITALS: BP 131/66
[2024-12-14 16:00] LABS: Folate 10.5 ng/ml (2.76-20); Vitamin B12 > 1000 pg/ml (239-931)
[2024-12-14] MEDS: LOVENOX 40 MG SC (18:11)
[2024-12-14 23:18] VITALS: BP 119/52
[2024-12-15] MEDS: UNASYN IV ×4 (02:01→19:55)
[2024-12-15] MEDS: ARMOUR THYROID 30 MG PO (05:16)
[2024-12-15] MEDS: ZOFRAN 4 MG IV (05:36)
[2024-12-15 06:00] VITALS: BMI 23.7
[2024-12-15 06:42] LABS: Hematocrit 24.5 % (37.0-47.0); Hemoglobin 7.8 g/dL (12.0-16.0); Mean Corp Hgb Conc. 31.8 g/dL (33.0-37.0); Mean Corpuscular Volume 92.8 fL (81.0-99.0); Nucleated Red Blood Cells % 0 %; Platelet Count 414 10^3/uL (130-400); Red Cell Dist. Width 15.6 % (11.5-14.5)
[2024-12-15 07:00] VITALS: BP 167/69
[2024-12-15 07:28] LABS: Blood Urea Nitrogen 14 mg/dl (7-17); Calcium 8.1 mg/dl (8.4-10.2); Carbon Dioxide 26 mmol/L (22-30); Chloride 104 mmol/L (98-107); Estimated Creatinine Clearance 54 ml/min; Glucose 112 mg/dl (70-99); Potassium 3.4 mmol/L (3.5-5.1); Sodium 135 mmol/L (135-145); eGFR > 60.00
[2024-12-15] MEDS: MILK OF MAGNESIA 30 ML PO (08:58)
[2024-12-15] MEDS: ZESTRIL 10 MG PO (09:02)
[2024-12-15] MEDS: CATAPRES 0.1 MG PO ×3 (09:02→22:10)
[2024-12-15] MEDS: CARDIZEM 30 MG PO ×4 (09:03→22:10)
--- NOTE | 2024-12-15 09:21 | W.PN.CRS1 ---
Today's Communication / Plan
-
MOM x 1
doing well, okay for d/c from our perspective
Assessment/Plan
-
89 yo with stercoral colitis with perforation POD#9 Exploratory laparotomy, sigmoid resection with takedown splenic flexure, disimpaction, and end colostomy
WBC: 11.6 (11.1, 16.7, 12.6)
Hgb: 7.8 (8.7, 11.2, 10.8)
vitals normal
Plan:
-Continue regular diet with ensure
-WBC trending down. Suspect wound. Cultures grew e.coli from OR. Continue IV zosyn. Convert to po as outpatient.
-OR pathology - peritonitis, diverticulosis. Family aware.
-OOB with PT/OT
-Wound RN for colostomy teaching
-Analgesics with scheduled Ofirmev and prn Dilaudid
-Midline dressing changes daily.
-Lovenox for DVT prophylaxis. TEDs/SCDs in place.
-Dipso: [facility]. Okay for discharge from our perspective when medically cleared.
-MOM x 1 to help with stoma output.
Subjective Data
Procedure
12/06/24- Exploratory laparotomy, sigmoid resection with takedown splenic flexure, disimpaction, and end colostomy
Subjective Data
Date of Service: December 15, 2024
Patient states she feels well. She has no complaints. Denies nausea or vomiting. She has been out of bed.
Objective Data
-
Vital Signs
Temp Pulse Resp BP Pulse Ox
98.5 F 88 16 167/69 99
12/15/24 07:00 12/15/24 09:03 12/15/24 07:00 12/15/24 09:03 12/15/24 07:00
Intake & Output
12/14/24 12/15/24 12/16/24
06:59 06:59 06:59
Intake Total 1240 / 1240 2920 / 2920
Balance 1240 / 1240 2920 / 2920
Intake:
Oral fluids 480 / 480 2400 / 2400
IV fluids (Total) 40 / 40 40 / 40
IV piggybacks 720 / 720 480 / 480
Other:
Number of approximated MODERATE 2 3
amounts of urine
Lab Results
12/15/24 06:22
12/15/24 06:22
Physical Exam
-
General: No Acute Distress and AOx3
Abdomen: Soft, Non Distended, Non Tender and Other (ostomy warm and pink with bowel sweat)
Wound: No Signs of Infection and Dressing Changed
--- NOTE | 2024-12-15 10:52 | CM ---
Addendum entered by [place] Solomon 12/15/24 16:01:
spoke with patient & son regarding wheelchair van cost, agreeable
form on chart for Wednesday & # to call for payment given to son
PLAN: [facility] on Sunday 12/17
Report #: [id number]
Fax #: [phone]
transportation wheelchair van form on chart
Addendum entered by Albania Solomon 12/15/24 15:45:
IMM explained & in chart
Addendum entered by Albania Solomon 12/15/24 15:43:
rec call from Izabela at [facility], bed available Sunday 12/17
will need COVID test 24hrs prior, hospitalist/nurse aware
spoke with dtr Ayla & patient agreeable
PLAN: [facility] on Sunday 12/17
Report #: [id number]
Fax #: [phone]
transportation forms on chart
Original Note:
Patient seen at bedside with daughter Ayla
CM spoke with Izabela - no bed available today
Izabela will call CM later today regarding if bed is avail tomorrow
PLAN: [facility], pending bed availability
--- NOTE | 2024-12-15 11:56 | W.PN.HOSP.TC ---
Today's Communication/Plan
-
monitor hbg
monitor ostomy output
maintain on iron infusion
Assessment / Plan
Assessment / Plan
Acute hypoxemic respiratory failure (VDRF)
- intubated for surgery; was extubated 24 hours later
Sigmoid colon perforation secondary to severe acute stercoral colitis from constipation
- s/p sigmoidectomy with end colostomy on 12/06/2024
- s/p NGT
- regular diet. monitor for tolerance
- prn pain control + anti-emetics
- continue Unasyn, WBC downtrended
- CRS following
Leukocytosis with sepsis due to transient bacteremia from perforated viscus
- continue Unasyn, WBC downtrended
Acute blood loss anemia from surgery
-no luminal blood loss reported
-Hbg down to 7.8 today, may require 1 u prbc if hbg < 7
-getting iron infusion
-check ferritin level
Hypocalcemia resolved
Chronic hyponatremia
History of Lyme disease with history of adrenal insufficiency and chronic fatigue
hx of SVT
- continue Dilt
Essential HTN with urgency
- continue oral Cardizem/Clonidine TID/Lisinopril
- BP improving
- If needed can increase lisinopril if needed
Hypothyroidism - on replacement
Hypokalemia - replete prn
Mild hyponatremia
-monitor for now
DVT ppx: Lovenox
Code: DNR/DNI
Anticipated Discharge: 24 - 48 hours
Subjective/Interval History
-
Date of Service: December 15, 2024
no new issues overnight
have some nausea, no vomiting
no significant output of stomy site
Objective Data
-
Labs:
Laboratory Results
12/15/24
06:22
WBC 11.6 H
Hgb 7.8 L
Hct 24.5 L
Plt Count 414 H
Sodium 135
Potassium 3.4 L
Chloride 104
Carbon Dioxide 26
BUN 14
Creatinine 0.5 L
Glucose 112 H
Calcium 8.1 L
Vital Signs:
Vital Signs
Temp Pulse Resp BP Pulse Ox
98.5 F 88 16 167/69 99
12/15/24 07:00 12/15/24 09:03 12/15/24 07:00 12/15/24 09:03 12/15/24 07:00
I&O
12/14/24 12/15/24 12/16/24
06:59 06:59 06:59
Intake Total 1240 / 1240 2920 / 2920 120 / 120
Balance 1240 / 1240 2920 / 2920 120 / 120
Review of Systems
-
Respiratory: Reports No Symptoms
Cardiac: Reports No Symptoms
Abdomen/GI: Reports Nausea; Denies Abdominal Pain or Vomiting
Physical Exam
-
General: No Apparent Distress
HEENT: Moist Mucous Membranes; Negative Oxygen
GI: Soft, Nontender, Ostomy and Other (Midline surgical scar)
Neuro: Awake, AO x 3 and No Motor Deficits
Psych: Calm
[2024-12-15 15:00] VITALS: BP 150/61
[2024-12-15 15:01] LABS: Ferritin 191.0 ng/ml (11.1-264.0)
[2024-12-15 15:52] VITALS: BP 154/64; PULSE 84; O2SAT 98
[2024-12-15] MEDS: FERRLECIT 110 MG IV (15:53)
[2024-12-15 15:54] VITALS: BP 154/64; PULSE 84; O2SAT 98
[2024-12-15] MEDS: LOVENOX 40 MG SC (17:58)
[2024-12-15 23:00] VITALS: BP 144/54
[2024-12-16] MEDS: UNASYN IV ×4 (01:10→19:57)
[2024-12-16] MEDS: ARMOUR THYROID 30 MG PO (05:43)
[2024-12-16 06:31] LABS: Hematocrit 23.3 % (37.0-47.0); Hemoglobin 7.4 g/dL (12.0-16.0); Mean Corp Hgb Conc. 31.8 g/dL (33.0-37.0); Mean Corpuscular Volume 95.1 fL (81.0-99.0); Platelet Count 432 10^3/uL (130-400); Red Cell Dist. Width 16.0 % (11.5-14.5)
[2024-12-16 06:56] LABS: Blood Urea Nitrogen 12 mg/dl (7-17); Calcium 8.1 mg/dl (8.4-10.2); Carbon Dioxide 27 mmol/L (22-30); Chloride 104 mmol/L (98-107); Estimated Creatinine Clearance 54 ml/min; Glucose 104 mg/dl (70-99); Potassium 3.9 mmol/L (3.5-5.1); Sodium 135 mmol/L (135-145); eGFR > 60.00
[2024-12-16 08:55] VITALS: BP 138/61
[2024-12-16] MEDS: CATAPRES 0.1 MG PO ×3 (09:34→21:27)
[2024-12-16] MEDS: ZESTRIL 10 MG PO (09:34)
[2024-12-16] MEDS: MIRALAX 17 GRAMS PO (09:35)
[2024-12-16] MEDS: CARDIZEM 30 MG PO ×4 (09:39→21:26)
--- NOTE | 2024-12-16 11:43 | W.PN.CRS1 ---
Addendum entered and electronically signed by Aiden Car MD 12/16/24 13:36:
Patient seen and examined. Agree with assessment plan as documented below.
Original Note:
Today's Communication / Plan
-
Bowel regimen
Assessment/Plan
-
89 yo with stercoral colitis with perforation POD#10 Exploratory laparotomy, sigmoid resection with takedown splenic flexure, disimpaction, and end colostomy. OR pathology - peritonitis, diverticulosis. Family aware.
H/H continues drifting down
Normalized WBC today
AFVSS
No passage of stool as of yet. Flatus/bowel sweat noted in appliance
Plan:
-Start Bowel regimen with Miralax and Colace
-Continue regular diet with ensure
-Continue IV unasyn. Convert to po upon d/c
-OOB with PT/OT
-Wound RN for colostomy teaching
-Analgesics with Tylenol, tramadol, dilaudid
-Midline dressing changes daily.
-Lovenox for DVT prophylaxis. TEDs/SCDs in place.
Dipso: [facility] home, would wait for BM via stoma prior to d/c
Subjective Data
Procedure
12/06/24- Exploratory laparotomy, sigmoid resection with takedown splenic flexure, disimpaction, and end colostomy
Subjective Data
Date of Service: December 16, 2024
Pt seen and examined at bedside with Dr. Car. Denies n/v. Tolerating diet. Denies much pain.
Objective Data
-
Vital Signs
Temp Pulse Resp BP Pulse Ox
97.8 F 87 14 138/61 98
12/16/24 08:55 12/16/24 09:39 12/16/24 08:55 12/16/24 09:39 12/16/24 08:55
Intake & Output
12/15/24 12/16/24 12/17/24
06:59 06:59 05:59
Intake Total 2920 / 2920 540 / 540 120 / 120
Balance 2920 / 2920 540 / 540 120 / 120
Intake:
Oral fluids 2400 / 2400 300 / 300
IV fluids (Total) 40 / 40
IV piggybacks 480 / 480 240 / 240 120 / 120
Other:
Number of approximated MODERATE 3 1
amounts of urine
Number of approximated LARGE 1
amounts of urine
Lab Results
12/16/24 06:11
12/16/24 06:11
Physical Exam
-
General: No Acute Distress and AOx3
Abdomen: Soft, Non Distended, Non Tender and Other (stoma pink/viable but edematous, flatus and bowel sweat in appliance)
Skin: Warm
Wound: No Signs of Infection
Incision: Clear, Dry, Intact
[2024-12-16 11:56] VITALS: BP 128/51
[2024-12-16 12:12] VITALS: BP 155/59
--- NOTE | 2024-12-16 13:37 | W.PN.HOSP.TC ---
Today's Communication/Plan
-
1 U PRBC today
For discharge tomorrow
Assessment / Plan
Assessment / Plan
Acute hypoxemic respiratory failure (VDRF)
- intubated for surgery; was extubated 24 hours later
Sigmoid colon perforation secondary to severe acute stercoral colitis from constipation
- s/p sigmoidectomy with end colostomy on 12/06/2024
- s/p NGT
- regular diet. monitor for tolerance
- prn pain control + anti-emetics
- continue Unasyn, WBC downtrended
- CRS following
Leukocytosis with sepsis due to transient bacteremia from perforated viscus
- continue Unasyn, WBC downtrended
Acute blood loss anemia from surgery
-no luminal blood loss reported
- Hemoglobin drifted down to 7.4 today provide 1 unit of PRBC
Hypocalcemia resolved
Chronic hyponatremia
History of Lyme disease with history of adrenal insufficiency and chronic fatigue
hx of SVT
- continue Dilt
Essential HTN with urgency
- continue oral Cardizem/Clonidine TID/Lisinopril
- BP improving
- If needed can increase lisinopril if needed
Hypothyroidism - on replacement
Hypokalemia - replete prn
Mild hyponatremia
-monitor for now
DVT ppx: Lovenox
Code: DNR/DNI
Anticipated Discharge: Within 24 hours
Subjective/Interval History
-
Date of Service: December 16, 2024
Resting comfortably in bed
Denies of having any significant abdominal pain/nausea vomiting
No reported acute event
Objective Data
-
Labs:
Laboratory Results
12/16/24
06:11
WBC 10.8
Hgb 7.4 L
Hct 23.3 L
Plt Count 432 H
Sodium 135
Potassium 3.9
Chloride 104
Carbon Dioxide 27
BUN 12
Creatinine 0.5 L
Glucose 104 H
Calcium 8.1 L
Vital Signs:
Vital Signs
Temp Pulse Resp BP Pulse Ox
97.8 F 76 16 155/59 98
12/16/24 12:12 12/16/24 12:12 12/16/24 12:12 12/16/24 12:12 12/16/24 11:56
I&O
12/15/24 12/16/24 12/17/24
06:59 06:59 05:59
Intake Total 2920 / 2920 540 / 540 120 / 120
Balance 2920 / 2920 540 / 540 120 / 120
Review of Systems
-
Respiratory: Reports No Symptoms
Cardiac: Reports No Symptoms
Abdomen/GI: Reports No Symptoms
Physical Exam
-
General: No Apparent Distress
HEENT: Moist Mucous Membranes; Negative Oxygen
GI: Soft, Nontender, Ostomy and Other (Midline surgical scar)
Neuro: Awake, AO x 3 and No Motor Deficits
Psych: Calm
[2024-12-16 14:24] VITALS: BP 138/66
--- NOTE | 2024-12-16 14:24 | PTCARENOTE ---
1 unit PRBC infused without incident, started @11:57 and ended 14:24, VSS.
[2024-12-16 15:55] VITALS: BP 141/64
[2024-12-16] MEDS: FERRLECIT 110 MG IV (16:12)
[2024-12-16 17:12] LABS: COVID-19 Antigen Negative (Negative)
[2024-12-16] MEDS: LOVENOX 40 MG SC (18:00)
[2024-12-16] MEDS: COLACE 100 MG PO (19:57)
[2024-12-16 23:29] VITALS: BP 158/69
[2024-12-17] MEDS: UNASYN IV ×3 (01:00→15:29)
[2024-12-17] MEDS: ZOFRAN 4 MG IV (05:32)
[2024-12-17] MEDS: ARMOUR THYROID 30 MG PO (05:32)
[2024-12-17 06:00] VITALS: BMI 25.3
[2024-12-17 06:50] LABS: Blood Urea Nitrogen 9 mg/dl (7-17); Calcium 8.6 mg/dl (8.4-10.2); Carbon Dioxide 28 mmol/L (22-30); Chloride 104 mmol/L (98-107); Estimated Creatinine Clearance 54 ml/min; Glucose 104 mg/dl (70-99); Potassium 4.0 mmol/L (3.5-5.1); Sodium 135 mmol/L (135-145); eGFR > 60.00
[2024-12-17 07:33] LABS: Hematocrit 28.1 % (37.0-47.0); Hemoglobin 9.4 g/dL (12.0-16.0); Mean Corp Hgb Conc. 33.5 g/dL (33.0-37.0); Mean Corpuscular Volume 89.8 fL (81.0-99.0); Platelet Count 561 10^3/uL (130-400); Red Cell Dist. Width 15.9 % (11.5-14.5)
[2024-12-17 07:55] VITALS: BP 140/64
--- NOTE | 2024-12-17 09:00 | PTCARENOTE ---
Entered patient's room and both patient and daughter stated MD stated this morning that she will not be discharged to [facility] today.
[2024-12-17] MEDS: MIRALAX 17 GRAMS PO (09:12)
[2024-12-17] MEDS: CATAPRES 0.1 MG PO ×3 (09:12→22:26)
[2024-12-17] MEDS: CARDIZEM 30 MG PO ×4 (09:13→22:26)
[2024-12-17] MEDS: ZESTRIL 10 MG PO (09:13)
[2024-12-17] MEDS: COLACE 100 MG PO ×2 (09:13→21:01)
--- NOTE | 2024-12-17 09:42 | W.PN.CRS1 ---
Addendum entered and electronically signed by Aiden Car MD 12/17/24 10:41:
Patient seen and examined. Agree with assessment plan as documented below.
Original Note:
Today's Communication / Plan
-
Bowel regimen
Assessment/Plan
-
89 yo with stercoral colitis with perforation POD#10 Exploratory laparotomy, sigmoid resection with takedown splenic flexure, disimpaction, and end colostomy. OR pathology - peritonitis, diverticulosis. Family aware.
H/H stable s/p one unit prbcs
Mild leukocytosis
AFVSS
No passage of stool as of yet. Flatus/bowel sweat noted in appliance
Plan:
-Continue Bowel regimen with Miralax and Colace BID. MOM x1 dose this afternoon.
-Continue regular diet with ensure
-Continue IV unasyn. Convert to po upon d/c
-OOB with PT/OT
-Wound RN for colostomy teaching
-Analgesics with Tylenol, tramadol, dilaudid
-Midline dressing changes daily.
-Lovenox for DVT prophylaxis. TEDs/SCDs in place.
Dipso: [facility] home, would wait for BM via stoma prior to d/c
Subjective Data
Procedure
12/06/24- Exploratory laparotomy, sigmoid resection with takedown splenic flexure, disimpaction, and end colostomy
Subjective Data
Date of Service: December 17, 2024
Pt seen and examined at bedside with Dr. Car. Denies vomiting. Intermittent mild nausea. Tolerating diet with good appetite. Minimal upper abdominal discomfort now and then.
Objective Data
-
Vital Signs
Temp Pulse Resp BP Pulse Ox
97.7 F 87 18 140/64 97
12/17/24 07:55 12/17/24 09:13 12/17/24 07:55 12/17/24 09:13 12/17/24 07:55
Intake & Output
12/16/24 12/17/24 12/18/24
06:59 05:59 06:59
Intake Total 540 / 540 600 / 600
Balance 540 / 540 600 / 600
Intake:
Oral fluids 300 / 300
IV piggybacks 240 / 240 350 / 350
Blood Product Amount Infused ( 250 / 250
mL)
Packed Rbc Leukoreduced Unit 250 / 250
[id number]
Other:
How many times incontinent 2
MODERATE amount urine
Number of approximated MODERATE 1 1
amounts of urine
Number of approximated LARGE 1
amounts of urine
Lab Results
12/17/24 06:06
12/17/24 06:06
Physical Exam
-
General: No Acute Distress and AOx3
Abdomen: Soft, Non Distended, Non Tender and Other (stoma pink/viable but edematous, flatus and bowel sweat in appliance)
Skin: Warm
Wound: No Signs of Infection
Incision: Clear, Dry, Intact
[2024-12-17] MEDS: VISBIOME 1 CAP PO (12:51)
--- NOTE | 2024-12-17 13:22 | W.PN.HOSP.TC ---
Today's Communication/Plan
-
Provide laxative
Change Unasyn to Augmentin
monitor for stomy output
Assessment / Plan
Assessment / Plan
Acute hypoxemic respiratory failure (VDRF)
- intubated for surgery; was extubated 24 hours later
Sigmoid colon perforation secondary to severe acute stercoral colitis from constipation
- s/p sigmoidectomy with end colostomy on 12/06/2024
- s/p NGT
- Intraoperative culture growing pansensitive E. coli. Anaerobic bottles growing bacteroids/Peptostreptococcus prevotii
- regular diet. monitor for tolerance
- prn pain control + anti-emetics
- Stopping Unasyn, changed to Augmentin.
- No ostomy output. Added laxatives to regimen
Leukocytosis with sepsis due to transient bacteremia from perforated viscus
- continue Unasyn, WBC downtrended
Acute blood loss anemia from surgery
- no luminal blood loss reported
- Hemoglobin 9.4 post 1 unit of PRBC
Hypocalcemia resolved
Chronic hyponatremia
History of Lyme disease with history of adrenal insufficiency and chronic fatigue
hx of SVT
- continue Dilt
Essential HTN with urgency
- continue oral Cardizem/Clonidine TID/Lisinopril
- BP improving
- If needed can increase lisinopril if needed
Hypothyroidism - on replacement
Hypokalemia - replete prn
Mild hyponatremia
-monitor for now
DVT ppx: Lovenox
Code: DNR/DNI
Anticipated Discharge: 24 - 48 hours
Subjective/Interval History
-
Date of Service: December 17, 2024
Denies abdominal pain/nausea/vomiting
Afebrile overnight
Did not have any good output from the stomy
Objective Data
-
Labs:
Laboratory Results
12/17/24
06:06
WBC 13.3 H
Hgb 9.4 L D
Hct 28.1 L
Plt Count 561 H D
Sodium 135
Potassium 4.0
Chloride 104
Carbon Dioxide 28
BUN 9
Creatinine 0.5 L
Glucose 104 H
Calcium 8.6
Vital Signs:
Vital Signs
Temp Pulse Resp BP Pulse Ox
97.7 F 87 18 140/64 97
12/17/24 07:55 12/17/24 09:13 12/17/24 07:55 12/17/24 09:13 12/17/24 07:55
I&O
12/16/24 12/17/24 12/18/24
06:59 05:59 06:59
Intake Total 540 / 540 600 / 600 120 / 120
Balance 540 / 540 600 / 600 120 / 120
Review of Systems
-
Respiratory: Reports No Symptoms
Cardiac: Reports No Symptoms
Abdomen/GI: Reports Abdominal Pain; Denies Nausea or Vomiting
Physical Exam
-
General: No Apparent Distress
HEENT: Negative Oxygen
GI: Soft, Nontender, Ostomy (Black liquid in stomy bag) and Other (Midline surgical scar)
Neuro: Awake, AO x 3 and No Motor Deficits
Psych: Calm
[2024-12-17] MEDS: FERRLECIT 110 MG IV (14:06)
[2024-12-17] MEDS: MILK OF MAGNESIA 30 ML PO (14:08)
[2024-12-17 15:30] VITALS: BP 165/82
[2024-12-17] MEDS: LOVENOX 40 MG SC (16:59)
[2024-12-17] MEDS: AUGMENTIN 875 MG/125 MG 1 TABLET PO (21:01)
[2024-12-17 23:15] VITALS: BP 149/72
[2024-12-18 06:00] VITALS: BMI 24.9
[2024-12-18] MEDS: ARMOUR THYROID 30 MG PO (06:09)
[2024-12-18 07:20] VITALS: BP 172/50
[2024-12-18 08:43] LABS: Hematocrit 28.8 % (37.0-47.0); Hemoglobin 9.4 g/dL (12.0-16.0); Mean Corp Hgb Conc. 32.6 g/dL (33.0-37.0); Mean Corpuscular Volume 92.0 fL (81.0-99.0); Platelet Count 627 10^3/uL (130-400); Red Cell Dist. Width 16.1 % (11.5-14.5)
[2024-12-18] MEDS: CATAPRES 0.1 MG PO (08:57)
[2024-12-18] MEDS: AUGMENTIN 875 MG/125 MG 1 TABLET PO (08:57)
[2024-12-18] MEDS: MIRALAX 17 GRAMS PO (08:57)
[2024-12-18] MEDS: COLACE 100 MG PO (08:58)
[2024-12-18] MEDS: CARDIZEM 30 MG PO ×2 (08:58→12:47)
[2024-12-18] MEDS: ZESTRIL 10 MG PO (08:58)
[2024-12-18] MEDS: VISBIOME 1 CAP PO (08:58)
[2024-12-18 09:09] LABS: Blood Urea Nitrogen 8 mg/dl (7-17); Calcium 8.5 mg/dl (8.4-10.2); Carbon Dioxide 29 mmol/L (22-30); Chloride 104 mmol/L (98-107); Estimated Creatinine Clearance 54 ml/min; Glucose 100 mg/dl (70-99); Potassium 4.4 mmol/L (3.5-5.1); Sodium 137 mmol/L (135-145); eGFR > 60.00
--- NOTE | 2024-12-18 09:30 | WOUNDNOTE ---
WON RN NOTE: Appliance changed today, patient assisted with cutting out wafer and closing tail end of pouch. Stoma pink and swollen, for brown stool output of small amt. Teaching done with daughter at bedside and answered all questions. Additional
supplies ordered from [facility], crude unit operator Kole made aware and asked to place in patient's rm when arrives.
--- NOTE | 2024-12-18 10:23 | W.PN.CRS1 ---
Today's Communication / Plan
-
dispo planning
Assessment/Plan
-
89 yo with stercoral colitis with perforation POD#10 Exploratory laparotomy, sigmoid resection with takedown splenic flexure, disimpaction, and end colostomy. OR pathology - peritonitis, diverticulosis. Family aware.
H/H stable s/p one unit prbcs
Mild leukocytosis
AFVSS
No passage of stool as of yet. Flatus/bowel sweat noted in appliance
Plan:
-Continue Bowel regimen with Miralax and Colace BID.
-Continue regular diet with ensure
-Continue IV unasyn. Convert to po upon d/c
-OOB with PT/OT
-Wound RN for colostomy teaching
-Analgesics with Tylenol, tramadol, dilaudid
-Midline dressing changes daily.
-Lovenox for DVT prophylaxis. TEDs/SCDs in place.
-Dipso: [facility], she has chronic constipation. She does not need to have a BM from our perspective for DC.
Subjective Data
Procedure
12/06/24- Exploratory laparotomy, sigmoid resection with takedown splenic flexure, disimpaction, and end colostomy
Subjective Data
Date of Service: December 18, 2024
Patient states she feels well this morning. She has flatus in the bag but not much stool. Denies nausea or vomiting. Tolerating a diet. Her pain is controlled.
Objective Data
-
Vital Signs
Temp Pulse Resp BP Pulse Ox
98.2 F 78 15 172/70 98
12/18/24 07:20 12/18/24 08:57 12/18/24 07:20 12/18/24 08:57 12/18/24 07:20
Intake & Output
12/17/24 12/18/24 12/19/24
05:59 06:59 06:59
Intake Total 600 / 600 1850 / 1850
Output Total 50 / 50
Balance 600 / 600 1800 / 1800
Intake:
Oral fluids 1680 / 1680
IV piggybacks 350 / 350 120 / 120
Fecal management system 50 / 50
irrigation (mL)
Colostomy 50 / 50
Blood Product Amount Infused ( 250 / 250
mL)
Packed Rbc Leukoreduced Unit 250 / 250
[id number]
Output:
Liquid stool amount 50 / 50
Colostomy 50 / 50
Other:
How many times incontinent 2
MODERATE amount urine
Number of approximated MODERATE 1 4
amounts of urine
Lab Results
12/18/24 07:29
12/18/24 07:29
Physical Exam
-
General: No Acute Distress and AOx3
Abdomen: Soft, Non Distended, Non Tender and Other (colostomy warm and pink with flatus in the bag)
Skin: Warm and Dry
Incision: Other (mild amount of erythema in the center of incision, q-tip inserted between rio, serosanginous discharge)
--- NOTE | 2024-12-18 11:50 | W.PN.HOSP.TC ---
Addendum entered and electronically signed by Madhav Ayon MD 12/20/24 17:18:
Sepsis due to sigmoid colon perforation with generalized peritonitis with organ dysfunction of lactic acidosis.
Original Note:
Today's Communication/Plan
-
dc to snf
po abx
Assessment / Plan
Assessment / Plan
Acute hypoxemic respiratory failure (VDRF)
- intubated for surgery; was extubated 24 hours later
Sigmoid colon perforation secondary to severe acute stercoral colitis from chronic constipation
- s/p sigmoidectomy with end colostomy on 12/06/2024
- s/p NGT
- Intraoperative culture growing pansensitive E. coli. Anaerobic bottles growing bacteroids/Peptostreptococcus prevotii
- regular diet. monitor for tolerance
- prn pain control + anti-emetics
- Stopping Unasyn, changed to Augmentin.
- No ostomy output. Added laxatives to regimen. Per CRS okay for dc.
Leukocytosis with sepsis due to transient bacteremia from perforated viscus
- po abx.
Acute blood loss anemia from surgery
- no luminal blood loss reported
- Hemoglobin 9.4 post 1 unit of PRBC
Hypocalcemia resolved
Chronic hyponatremia
History of Lyme disease with history of adrenal insufficiency and chronic fatigue
hx of SVT
- continue Dilt
Essential HTN with urgency
- continue oral Cardizem/Clonidine TID/Lisinopril
Hypothyroidism - on replacement
Hypokalemia - replete prn
Mild hyponatremia
-monitor for now
DVT ppx: Lovenox
Code: DNR/DNI
d/w with daughter at bedside in details .
d/w wtih CRS-okay for dc
CM aware for SNF.
More than 30 minutes spent in discharge including
Final examination of the patient
Summarizing hospital stay
Instructions for continuing care to all relevant caregivers
Preparation of discharge records, prescriptions, and referral forms
Total time spent (in minutes): 53
Anticipated Discharge: Today
Subjective/Interval History
-
Date of Service: December 18, 2024
tolerating diet
Objective Data
-
Labs:
Laboratory Results
12/18/24
07:29
WBC 13.1 H
Hgb 9.4 L
Hct 28.8 L
Plt Count 627 H
Sodium 137
Potassium 4.4
Chloride 104
Carbon Dioxide 29
BUN 8
Creatinine 0.6
Glucose 100 H
Calcium 8.5
Vital Signs:
Vital Signs
Temp Pulse Resp BP Pulse Ox
98.2 F 78 15 172/70 98
12/18/24 07:20 12/18/24 08:57 12/18/24 07:20 12/18/24 08:57 12/18/24 07:20
I&O
12/17/24 12/18/24 12/19/24
05:59 06:59 06:59
Intake Total 600 / 600 1850 / 1850 180 / 180
Output Total 50 / 50
Balance 600 / 600 1800 / 1800 180 / 180
Physical Exam
-
General: No Apparent Distress
HEENT: Atraumatic and Moist Mucous Membranes; Negative Oxygen
Respiratory: Clear to Auscultation (anterior)
Cardiac: S1/S2
GI: Soft, Nontender, Ostomy (stoma bag with flatuelence. Was changed prior to my examinataion ) and Other (Midline surgical scar)
Neuro: Awake, AO x 3 and No Motor Deficits
Psych: Calm
--- NOTE | 2024-12-18 11:58 | W.DCSUMMARY ---
Discharge Summary
Discharge Data
Date of Admission: 12/06/24
Date of Discharge: 12/18/24
-
Pending Results: No
Hospital Course
89-year-old female past medical history of Lyme disease, SVT, hypertension, hypothyroidism presented with abdominal pain. Patient in the ER was evaluated and underwent CT abdomen pelvis with showed severe acute stercoral colitis in the proximal
sigmoid colon secondary to severe constipation with colonic perforation, pneumatosis in the colon wall and a small amount of extraluminal air in the pelvis. Patient was eval by colorectal surgery. Patient underwent to the operating room
immediately. Operative Findings: Large perforation in the sigmoid colon secondary to stercoral colitis. Free intra-abdominal air with a moderate amount of murky fluid in the pelvis (culture)
Hard, inspissated stool throughout the entire transverse colon and left colon propagated distally and removed Viable bowel throughout. Procedure Performed: Exploratory laparotomy, sigmoid resection with takedown splenic flexure, disimpaction, and
end colostomy. NG tube in the fundus of the stomach. Patient was on IV Zosyn which was eventually narrowed to Unasyn which was narrowed down to p.o. Augmentin. Patient was extubated after doing well with spontaneous breathing trial.
Postextubation patient remained on NG tube. Patient was eventually transferred to medical floors. Blood pressure meds were started. Eventually NG tube was discontinued. Patient was started on clears. Patient was able to tolerate clears and was
advanced to low residue diet. Bowel regimen was started. Patient also with anemia and received blood transfusion. Patient was tolerating diet without difficulty. Per colorectal surgery patient with chronic constipation. Patient remained
afebrile. Was tolerating diet. Transitioned to p.o. Augmentin which she was tolerating. Patient was eval by physical therapy and Occupational Therapy and was discharged to senior living facility.
Discharge Plan
-
Patient Disposition: Long-Term/SNF
Discharge Diagnosis/Procedures: Acute hypoxemic respiratory failure
Sigmoid colon perforation secondary to severe acute stercoral colitis from constipation
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
Leukocytosis with sepsis due to transient bacteremia from perforated viscus
Hypocalcemia
Condition: Fair
Diet: Regular
Activity: With assistance and As tolerated
Driving Restrictions: Not until seen by your Dr
Blood Work: CBC AND BMP IN 1 WEEK VIA PRIMARY DOCTOR
Wound Care: Cover midline wound with gauze and paper tape. Change daily and as needed. Outlook will be removed in the office by Dr. Ceja.
Activity Restrictions/Additional Instructions:
Colostomy supplies: Ochoa wafer # [id number] Ochoa pouch # [id number]. Change 2 times a week and as needed for leakage. If leakage occurs, try adding a moldable ring (i.e. Yasmany seal).
Call supply company (list in folder provided) for monthly Ostomy supplies after discharge (ask VN to order supplies while on service).
Follow up with surgeon.
Call [facility] RN nurse for ostomy pouching concerns or leakage problems [phone] or [phone] or [phone].
Referrals:
Erich Ceja MD [Active, ColoRectal] - in two weeks
Jimy Zuniga DO [Family Provider, Family Practice] - in less than 1 week
Prescriptions:
New
lisinopril 10 mg Tablet
10 mg PO DAILY Qty: 30 0RF
polyethylene glycol 3350 17 gram powder in packet
17 g PO DAILY Qty: 30 0RF
acetaminophen [Aminofen] 325 mg tablet
650 mg PO Q4H PRN (Reason: fever or pain) Qty: 30 0RF
amoxicillin-pot clavulanate 875-125 mg tablet
1 tab PO Q12H Qty: 18 0RF
docusate sodium 100 mg Capsule
100 mg PO BID Qty: 20 0RF
Continued
cholecalciferol (vitamin D3) [Vitamin D3] 1,000 UNIT capsule
1,000 unit PO DAILY
diltiazem HCl 180 MG capsule,extended release 24hr
180 mg PO DAILY
clonidine HCl 0.1 mg tablet
0.1 mg PO TID
thyroid (pork) [[place] Thyroid] 30 mg tablet
30 mg PO DAILY
multivitamin Tablet
1 tab PO DAILY
aspirin 81 mg Tablet
81 mg PO DAILY
Discontinued
magnesium 250 MG tablet
250 mg PO DAILY
Saccharomyces boulardii [Daily Probiotic (S. boulardii)] 250 MG capsule
250 mg PO DAILY
Discharge Orders:
Discharge Patient (As Directed); Ordered 12/18/24
Ordered By: Madhav Ayon
Discharge Date and Time
Discharge Date/Time: 12/18/24 15:00
Print Language: GREENLANDIC
[2024-12-18 12:36] LABS: COVID-19 Antigen Negative (Negative)
[2024-12-18] MEDS: FLUSH (NSS) 2 FLUSH IV (13:02)
[2024-12-18] MEDS: FERRLECIT 110 MG IV (13:02)
--- NOTE | 2024-12-18 13:13 | CM ---
entered order for discharge.
Izabela at [facility] has a bed today.
Requested Covid order Covid done and is negative Izabela aware.
Spoke with Bren duongt [phone] she is in agreement with dc to [facility] today
Dgt agreed with [facility] Dgt given number [phone] to pay [facility].
[facility]:
Report #: [phone]
Fax #: [phone]
PLAN Dc to van to [facility]
[2024-12-18 14:56] VITALS: BP 147/60
--- NOTE | 2024-12-20 09:04 | PN.CDI ---
CDI
- -
CDI:
Physician Documentation Request
Admit Date: 12/06/24 18:43
Dear ,
Sepsis without organ dysfunction is no longer used within our health system. These cases are now coded as the primary infection, not as sepsis.
[facility] is using an adapted version of the 2016 Third International Consensus Definitions for Sepsis and Septic Shock (Sepsis-3) where sepsis is defined as life threatening organ dysfunction caused by a deregulated host response to infection.
Please reference the official [facility] Sepsis Recognition Tool for further information, which is available on the Intranet under Infection Prevention.
Clinical Indicators Include:
Pt admitted with stercoral colitis/Sigmoid colon perforation /generalized peritonitis -Pt on IV Zosyn
Progress Notes:
Trend vital signs:on admission 12/06
RR:33
Labs:
WBC: 15.4
Lactate: 2.1
Treatment:
Pt taken to OR found to have generalized peritonitis and sigmoid colon peroration
Based on your medical judgment, please review the documentation pertaining to Sepsis due to (Enter infection) and further clarify the clinical indicators and any organ dysfunction associated with the diagnosis, if applicable:
� Sepsis ruled out, sigmoid colon perforation with generalized peritonitis only
� Sepsis due to sigmoid colon perforation with generalized peritonitis with organ dysfunction of
� Other
� Clinically Unable to Determine
Use of terms such as suspected, likely, concern for, or probable (associated with a specific diagnosis that is being evaluated, monitored, or treated as if it exists) are acceptable and can be coded in the inpatient setting when documented at the
time of discharge.
Please use your independent medical judgement in providing your response.
Thank you,
Inessa Lerner RN
CDI Specialist
[place] [facility]
--- NOTE | 2024-12-20 09:33 | PN.CDI ---
CDI
- -
CDI:
Physician Documentation Request
Admit Date: 12/06/24 18:[address] Ayon,
Sepsis without organ dysfunction is no longer used within our health system. These cases are now coded as the primary infection, not as sepsis.
[facility] is using an adapted version of the 2016 Third International Consensus Definitions for Sepsis and Septic Shock (Sepsis-3) where sepsis is defined as life threatening organ dysfunction caused by a deregulated host response to infection.
Please reference the official [facility] Sepsis Recognition Tool for further information, which is available on the Intranet under Infection Prevention.
Clinical Indicators Include:
Pt admitted with Sepsis 2/2 Sigmoid colon perforation /generalized peritonitis on IV Zosyn
Progress Notes:
Media Director consult, ' #Lactic acidosis..'
Trend vital signs:on admission 12/06
RR:33
Labs:
WBC on admit 15.4
Trended Lactic acid levels below:
Laboratory Tests
12/06/24 12/07/24 12/07/24
17:45 00:02 05:28
Lactic Acid 2.1 H 2.1 H 2.7 H
12/07/24 12/07/24 12/07/24
09:51 15:05 21:44
Lactic Acid 2.5 H 3.0 H 2.2 H
12/08/24
03:25
Lactic Acid 1.3
Treatment: IVFs
Based on your medical judgment, please review the documentation pertaining to Sepsis due to (Enter infection) and further clarify the clinical indicators and any organ dysfunction associated with the diagnosis, if applicable:
� Sepsis ruled out,sigmoid colon perforation with generalized peritonitis only
� Sepsis due to sigmoid colon perforation with generalized peritonitis with organ dysfunction of ___lactic acidosis
� Other
� Clinically Unable to Determine
Use of terms such as suspected, likely, concern for, or probable (associated with a specific diagnosis that is being evaluated, monitored, or treated as if it exists) are acceptable and can be coded in the inpatient setting when documented at the
time of discharge.
Please use your independent medical judgement in providing your response.
Thank you,
Inessa Lerner RN
CDI Specialist
[place] [facility]
== END 2024-12-18 15:00 | DRG 853 ==
LOC: 2 SOUTH 18:43
PROVIDERS: Emergency Medicine; Hospitalist; Internal Medicine; Nurse Practitioner Family; Physician Assistant; Physician Assistant Medical; Registered Nurse; ADMITTING PHYSICIAN Hospitalist; ATTENDING PHYSICIAN Hospitalist; CONSULT PHYSICIAN Internal Medicine Critical Care Medicine; CONSULT PHYSICIAN Surgery; EMERGENCY PHYSICIAN Emergency Medicine; FAMILY PHYSICIAN Family Medicine
PROC: 0D1M0Z4 Bypass Descending Colon to Cutaneous, Open Approach (ICD-10-PCS; 2024-12-06)
PROC: 0D9670Z Drainage of Stomach with Drainage Device, Via Natural or Artificial Opening (ICD-10-PCS; 2024-12-06)
PROC: 0DTN0ZZ Resection of Sigmoid Colon, Open Approach (ICD-10-PCS; 2024-12-06)
PROC: 0DCE0ZZ Extirpation of Matter from Large Intestine, Open Approach (ICD-10-PCS; 2024-12-06)
PROC: 5A1935Z Respiratory Ventilation, Less than 24 Consecutive Hours (ICD-10-PCS; 2024-12-07)
PROC: 0BH17EZ Insertion of Endotracheal Airway into Trachea, Via Natural or Artificial Opening (ICD-10-PCS; 2024-12-07)
PROC: 30233N1 Transfusion of Nonautologous Red Blood Cells into Peripheral Vein, Percutaneous Approach (ICD-10-PCS; 2024-12-16)
DX: A41.9 Sepsis, unspecified organism (principal); J96.01 Acute respiratory failure with hypoxia; K63.1 Perforation of intestine (nontraumatic); R57.1 Hypovolemic shock; K65.0 Generalized (acute) peritonitis; E27.40 Unspecified adrenocortical insufficiency; I47.10 Supraventricular tachycardia, unspecified; E87.1 Hypo-osmolality and hyponatremia; R18.8 Other ascites; E87.20 Acidosis, unspecified; K56.7 Ileus, unspecified; D62 Acute posthemorrhagic anemia; E03.9 Hypothyroidism, unspecified; F41.9 Anxiety disorder, unspecified; I25.10 Atherosclerotic heart disease of native coronary artery without angina pectoris; I10 Essential (primary) hypertension; K59.09 Other constipation; K52.89 Other specified noninfective gastroenteritis and colitis; R53.82 Chronic fatigue, unspecified; R65.20 Severe sepsis without septic shock; N73.6 Female pelvic peritoneal adhesions (postinfective); R33.9 Retention of urine, unspecified; E87.6 Hypokalemia; E83.51 Hypocalcemia; I16.0 Hypertensive urgency; K21.9 Gastro-esophageal reflux disease without esophagitis; H40.9 Unspecified glaucoma; E78.00 Pure hypercholesterolemia, unspecified; Z66 Do not resuscitate; Z90.710 Acquired absence of both cervix and uterus; Z90.49 Acquired absence of other specified parts of digestive tract; Z79.82 Long term (current) use of aspirin; Z79.890 Hormone replacement therapy; Z88.1 Allergy status to other antibiotic agents; Z88.5 Allergy status to narcotic agent; Z88.2 Allergy status to sulfonamides; Z88.8 Allergy status to other drugs, medicaments and biological substances; Z11.52 Encounter for screening for COVID-19; Z80.0 Family history of malignant neoplasm of digestive organs; Z86.19 Personal history of other infectious and parasitic diseases
CPT/HCPCS: 71045; 74177; 80048; 80053; 82607; 82728; 82746; 82805; 82962; 83036; 83540; 83550; 83605; 83690; 83735; 83880; 84100; 84443; 84478; 85014; 85018; 85025; 85027; 85610; 85730; 86850; 86900; 86901; 86920; 87040; 87070; 87075; 87076; 87077; 87185; 87186; 87205; 87811; 88307; 93005; 94002; 94003; 94640; 96361; 96374; 96375; 97116; 97163; 97167; 97530; 97535; 99285; J2916; P9016; P9047; Q9967